=== PATIENT | male | born 1970 | race Two or more races ===

== ENCOUNTER 2017-04-27 16:06 | Emergency (ER) | payer OTHER ==
[~2017-04-27] VITALS: Ht 172.7 cm; Wt 129.3 kg
[~2017-04-27 16:06] MED LIST: ALBU.083IS IH; ALBU90OI INH; ASPI81CH PO; CEPH500 PO; CLON.2 PO; Clonidine HCl0.1 MG PO; DOCU100 PO; DOXY100 PO; FURO20 PO; HYDGUAL120 PO; Hydrochlorothia25 MG PO; LISI20 PO; Metoprolol Tar100 MG PO; POTCHL10ER PO; PRAV20 PO; PRED10 PO; PRED20 PO; SULTRIDS PO; TRIA80TC TOP; Vitamin D2000 UNIT; ZESTRIL40 MG PO
[2017-04-27 16:46] LABS: BASOPHILS ABSOLUTE AUTO 0.05 K/mm3 (0.00-0.23); BASOPHILS PERCENT AUTO 1 % (0-2); EOSINOPHILS ABSOLUTE AUTO 0.14 K/mm3 (0.00-0.68); EOSINOPHILS PERCENT AUTO 1 % (0-6); Hematocrit 49.7 % (37.0-53.0); Hemoglobin 16.3 g/dL (13.5-17.5); IMMATURE GRAN ABSOLUTE AUTO 0.09 K/mm3 (0.00-0.10); IMMATURE GRAN PERCENT AUTO 1 % (0-1); LYMPHOCYTES ABSOLUTE AUTO 2.28 K/mm3 (0.84-5.20); LYMPHOCYTES PERCENT AUTO 23 % (21-46); MONOCYTES ABSOLUTE AUTO 1.01 K/mm3 (0.16-1.47); MONOCYTES PERCENT AUTO 10 % (4-13); Mean Corpuscular HGB 29.2 pg (26.0-34.0); Mean Corpuscular HGB Conc 32.8 g/dL (31.5-36.5); Mean Corpuscular Volume 89 fL (80-100); Mean Platelet Volume 12.3 fL (9.1-12.4); NEUTROPHILS ABSOLUTE AUTO 6.25 K/mm3 (1.96-9.15); NEUTROPHILS PERCENT AUTO 64 % (41-73); Platelet Count 256 K/mm3 (150-400); RDW Coefficient Variation 13.5 % (11.7-14.2); RDW Standard Deviation 44.4 fL (35.1-46.3); Red Blood Cell Count 5.58 M/mm3 (4.30-5.90); White Blood Cell Count 9.82 K/mm3 (4.00-11.30)
[2017-04-27 17:04] LABS: Alanine Aminotransfer (ALT/SGP 33 U/L (12-78); Albumin/Globulin Ratio 0.6 (0.8-1.8); Alk Phos 93 U/L (50-136); Anion Gap 9 mmol/L (6-16); Aspartate Aminotrans (AST/SGOT 14 U/L (12-37); Bilirubin, Total 0.7 mg/dL (0.1-1.0); Blood Urea Nitrogen 10 mg/dL (8-24); Bun/Creatinine Ratio 10.6 (12.0-20.0); CO2, Blood 27 mmol/L (21-32); Calcium, Blood 8.8 mg/dL (8.5-10.1); Chloride, Blood 99 mmol/L (98-108); Creatinine, Blood 0.94 mg/dL (0.60-1.20); Glomerular Filtration Rate >60 (60-); Glucose, Blood 150 mg/dL (70-99); Potassium, Blood 3.6 mmol/L (3.5-5.5); Sodium, Blood 135 mmol/L (136-145)
[2017-04-27] MEDS ORDERED: CLON.2 PO (18:01)
[2017-04-27] MEDS ORDERED: FURO20 PO (18:01)
[2017-04-27] MEDS ORDERED: Keflex500 MG PO (18:20)
== END 2017-04-27 18:50 | disposition home or self-care (01) ==
LOC: ER 16:06
PROVIDERS: Psychiatry & Neurology Psychiatry
DX: L03.115 Cellulitis of right lower limb (principal); I10 Essential (primary) hypertension; Z79.899 Other long term (current) drug therapy
CPT/HCPCS: 36415; 80053; 85025; 99283

== ENCOUNTER 2018-07-17 20:40 | Emergency (ER) | payer OTHER ==
[~2018-07-17] VITALS: Ht 175.3 cm; Wt 129.3 kg
[~2018-07-17 20:40] MED LIST changes: +Keflex500 MG PO
[2018-07-17 21:24] LABS: Source, Urine Clean Catch
[2018-07-17 21:29] LABS: Appearance, Urine Clear (Clear); Bilirubin, Urine Neg (Neg); Blood, Urine 5+ (Neg); Color, Urine Yellow (P-Yellow); Glucose Qualitative, Urine Neg (Neg); Ketones, Urine Neg (Neg); Leukocyte Esterase, Urine Neg (Neg); Nitrite, Urine Neg (Neg); Protein, Urine Neg (Neg); Specific Gravity, Urine 1.015 (1.003-1.022); Urobilinogen, Urine 1+ (Normal)
[2018-07-17 21:44] LABS: Bacteria Mod /hpf; Red Blood Cells, Urine 50-100 /hpf (0-2); Squamous Epithelial Cells Few /hpf (Few); Yeast/Fungi Urine Few /hpf
== END 2018-07-17 23:45 | disposition left against medical advice (07) ==
LOC: ER 20:40
PROVIDERS: Emergency Medicine
DX: Z53.21 Procedure and treatment not carried out due to patient leaving prior to being seen by health care provider (principal)
CPT/HCPCS: 81001; 87086

== ENCOUNTER → 2018-08-04 | Outpatient (CLI) | payer OTHER | END | disposition home or self-care (01) | LOC: LAB SHORT 13:20 → LAB 13:20 | DX: Z87.448 Personal history of other diseases of urinary system (principal) | CPT/HCPCS: 88108 ==

== ENCOUNTER → 2019-01-07 | Outpatient (CLI) | payer OTHER | END | disposition home or self-care (01) | LOC: LAB SHORT 12:22 → LAB 12:22 → LAB FUT 11-18 13:05 → EDSTATUS 11-18 13:05 | DX: Z09 Encounter for follow-up examination after completed treatment for conditions other than malignant neoplasm (principal); Z87.448 Personal history of other diseases of urinary system | CPT/HCPCS: 88108 ==

== ENCOUNTER → 2019-06-08 | Outpatient (CLI) | payer OTHER ==
[2019-06-08 10:12] LABS: Source, Urine Clean Catch
[2019-06-08 12:52] LABS: Bilirubin, Urine Neg (Neg); Blood, Urine 5+ (Neg); Glucose Qualitative, Urine Neg (Neg); Ketones, Urine Neg (Neg); Leukocyte Esterase, Urine Neg (Neg); Nitrite, Urine Neg (Neg); Protein, Urine 3+ (Neg); Specific Gravity, Urine 1.015 (1.003-1.022); Urobilinogen, Urine NORM (Normal)
[2019-06-08 13:02] LABS: Appearance, Urine Hazy (Clear); Bacteria Rare /hpf; Color, Urine Yellow (P-Yellow); Red Blood Cells, Urine 50-100 /hpf (0-2); Squamous Epithelial Cells Few /hpf (Few); White Blood Cells, Urine 0-2 /hpf (0-5)
== END | disposition home or self-care (01) ==
LOC: LAB 09:00 → LAB SHORT 09:00
PROVIDERS: Internal Medicine
DX: N17.9 Acute kidney failure, unspecified (principal)
CPT/HCPCS: 81001; 82570; 84156

== ENCOUNTER 2019-09-19 11:32 | Inpatient (IN) | payer OTHER ==
[~2019-09-19] VITALS: Ht 157.5 cm; Wt 105.0 kg
[~2019-09-19 11:32] MED LIST changes: -Metoprolol Tar100 MG PO; -POTCHL10ER PO; -PRAV20 PO
[2019-09-19 13:53] LABS: BASOPHILS PERCENT AUTO 1 % (0-2); EOSINOPHILS ABSOLUTE AUTO 0.24 K/mm3 (0.00-0.68); EOSINOPHILS PERCENT AUTO 2 % (0-6); Hemoglobin 11.1 g/dL (13.5-17.5); IMMATURE GRAN ABSOLUTE AUTO 0.07 K/mm3 (0.00-0.10); IMMATURE GRAN PERCENT AUTO 1 % (0-1); LYMPHOCYTES ABSOLUTE AUTO 1.81 K/mm3 (0.84-5.20); LYMPHOCYTES PERCENT AUTO 12 % (21-46); MONOCYTES ABSOLUTE AUTO 0.97 K/mm3 (0.16-1.47); MONOCYTES PERCENT AUTO 7 % (4-13); Mean Corpuscular HGB 22.8 pg (26.0-34.0); Mean Corpuscular HGB Conc 28.5 g/dL (31.5-36.5); Mean Corpuscular Volume 80 fL (80-100); Mean Platelet Volume 11.4 fL (9.1-12.4); NEUTROPHILS ABSOLUTE AUTO 11.44 K/mm3 (1.96-9.15); NEUTROPHILS PERCENT AUTO 78 % (41-73); Platelet Count 506 K/mm3 (150-400); Red Blood Cell Count 4.86 M/mm3 (4.30-5.90); White Blood Cell Count 14.63 K/mm3 (4.00-11.30)
[2019-09-19 14:09] LABS: Anion Gap 6 mmol/L (6-16); Blood Urea Nitrogen 18 mg/dL (8-24); Bun/Creatinine Ratio 17.1 (12.0-20.0); CO2, Blood 26 mmol/L (21-32); Calcium, Blood 9.4 mg/dL (8.5-10.1); Chloride, Blood 103 mmol/L (98-108); Creatinine, Blood 1.05 mg/dL (0.60-1.20); Glomerular Filtration Rate >60 (60-); Glucose, Blood 97 mg/dL (70-99); Potassium, Blood 3.6 mmol/L (3.5-5.5); Sodium, Blood 135 mmol/L (136-145)
[2019-09-19 14:13] LABS: International Normalized Ratio 1.07; Prothrombin Time Results 11.4 Sec (9.7-11.5)
[2019-09-19] MEDS ORDERED: FURO20 PO (14:44)
[2019-09-19] MEDS ORDERED: POTCHL10ER PO (14:44)
[2019-09-19] MEDS ORDERED: Metoprolol Tar100 MG PO (14:51)
[2019-09-19] MEDS ORDERED: CLON.1 PO (14:52)
[2019-09-19] MEDS ORDERED: PRAV20 PO (14:52)
[2019-09-19] MEDS ORDERED: Aspir 8181 MG PO (14:52)
[2019-09-19] MEDS ORDERED: Vitamin D2000 UNIT PO (14:53)
[2019-09-19 15:38] LABS: Source, Urine Clean Catch
[2019-09-19 15:49] LABS: Bilirubin, Urine Neg (Neg); Blood, Urine 5+ (Neg); Glucose Qualitative, Urine Neg (Neg); Ketones, Urine 1+ (Neg); Leukocyte Esterase, Urine 1+ (Neg); Nitrite, Urine Neg (Neg); Protein, Urine 4+ (Neg); Urobilinogen, Urine NORM (Normal)
[2019-09-19 15:51] LABS: Appearance, Urine Bloody (Clear); Color, Urine Red (P-Yellow)
[2019-09-19 15:57] LABS: Bacteria Mod /hpf; Mucus Light (0-Heavy); Red Blood Cells, Urine TNTC /hpf (0-2); Squamous Epithelial Cells Few /hpf (Few)
--- NOTE | 2019-09-19 18:40 | NUR ---
SHIFT SUMMARY A/O X4, VSS, S/P R HIP FX. TOLERATING PO, PAIN MANAGED PER EMAR, R SIDE DEFICITS FROM CVA 7 YEARS AGO, REPOSITIONING R EXTREMETIES Q2. WILL REPORT TO ONCOMING NOC RN.
[2019-09-20 04:24] LABS: BASOPHILS ABSOLUTE AUTO 0.08 K/mm3 (0.00-0.23); BASOPHILS PERCENT AUTO 1 % (0-2); EOSINOPHILS ABSOLUTE AUTO 0.38 K/mm3 (0.00-0.68); EOSINOPHILS PERCENT AUTO 4 % (0-6); Hematocrit 33.7 % (37.0-53.0); Hemoglobin 9.8 g/dL (13.5-17.5); IMMATURE GRAN ABSOLUTE AUTO 0.03 K/mm3 (0.00-0.10); IMMATURE GRAN PERCENT AUTO 0 % (0-1); LYMPHOCYTES ABSOLUTE AUTO 1.48 K/mm3 (0.84-5.20); LYMPHOCYTES PERCENT AUTO 14 % (21-46); MONOCYTES ABSOLUTE AUTO 0.84 K/mm3 (0.16-1.47); MONOCYTES PERCENT AUTO 8 % (4-13); Mean Corpuscular HGB 23.1 pg (26.0-34.0); Mean Corpuscular HGB Conc 29.1 g/dL (31.5-36.5); Mean Corpuscular Volume 79 fL (80-100); Mean Platelet Volume 11.3 fL (9.1-12.4); NEUTROPHILS ABSOLUTE AUTO 8.11 K/mm3 (1.96-9.15); NEUTROPHILS PERCENT AUTO 74 % (41-73); Platelet Count 436 K/mm3 (150-400); RDW Coefficient Variation 15.9 % (11.7-14.2); RDW Standard Deviation 45.4 fL (35.1-46.3); Red Blood Cell Count 4.25 M/mm3 (4.30-5.90); White Blood Cell Count 10.92 K/mm3 (4.00-11.30)
--- NOTE | 2019-09-20 05:03 | NUR ---
Shift Summary Patient has been repositioned through out the night to position of comfort. He limited in his ablility to help with turns due to his prior stroke symptoms. He likes to have the urinal placed and kept there. He has mary blood in his urine, he states that this is normal for him. His rt leg is externally rotated and has been causeing him shooting pains, treated with norco at the start of the shift. pt has slept inbetween VS and rounding. NPO since midnight. Patient is happy that he will likely go to OR today. No acute changes.
--- NOTE | 2019-09-20 06:58 | NUR ---
PATIENT HAD BEEN VOIDING 20-50CC OF URINE EVERY FEW HOURS THROUGH OUT THE NIGHT. tHERE WAS AN ORDER FOR BLADDER FOR URINE RETENTION AND FOR STRAIGHT CATH IF >300. bLADDER SCAN SHOWED GREATER THAN 999. MILLAN CATH PLACED TO HELP DRAIN THE BLADDER SLOWLY OVER TIME. ORDER RECIEVED FOR MILLAN CATH. URINE IS CRANBERRY COLORED WITH BRANDON BLOOD ONLY AT THE MEATUS (PATIENT STATED THAT THIS HAS BEEN ONGOING).
[2019-09-20 07:39] LABS: Source, Urine Catheter
[2019-09-20 07:50] LABS: Appearance, Urine Cloudy (Clear); Bilirubin, Urine Neg (Neg); Blood, Urine 5+ (Neg); Color, Urine Amber (P-Yellow); Glucose Qualitative, Urine Neg (Neg); Ketones, Urine 1+ (Neg); Leukocyte Esterase, Urine 1+ (Neg); Nitrite, Urine Pos (Neg); Protein, Urine 3+ (Neg); Specific Gravity, Urine 1.015 (1.003-1.022); Urobilinogen, Urine 1+ (Normal)
[2019-09-20 08:05] LABS: Red Blood Cells, Urine TNTC /hpf (0-2)
[2019-09-20 08:07] LABS: Bacteria Many /hpf; Squamous Epithelial Cells Not Seen /hpf (Few)
--- NOTE | 2019-09-20 09:23 | NUR ---
DR BULLARD IN TO SEE PT.
--- NOTE | 2019-09-20 19:49 | NUR ---
SUMMARY NO ACUTE CHANGES T/O SHIFT. FLUSHED MILLAN CATH TWICE DURING SHIFT DUE TO NOT DRAINING AND INCREASED DISCOMFORT FOR PT. OUTPUT PINK TO RED. PT REPORTS THIS OCCURS AT HOME. MEDICATED PER ORDERS FOR PAIN T/O DAY. CALL LIGHT IN REACH.
--- NOTE | 2019-09-21 05:40 | NUR ---
SHIFT SUMMARY PT AA0X4 VSS. LEG EXTERNALLT ROTATED, PT ASSISTS WITH REPOSITIONING FOR COMFORT. PT HAS REPOSITIONED SELF IN BED FREQUENTLY. NPO SINCE MIDNIGHT PER ORDERS. PLAN IS TO GO TO OR DURING THE DAY. MILLAN DRAINING. SEDIMENT PRESENT RED IN COLOR. DENIED PAIN DURING SHIFT.
--- NOTE | 2019-09-21 12:03 | NUR ---
PT TO OR
--- NOTE | 2019-09-21 18:03 | NUR ---
SUMMARY PT ARRIVED TO UNIT FROM PACU. AQUACEL DRESSING TO R HIP CDI. POLAR PACK IN PLACE. PT DENIES PAIN. REQUESTING FOOD AND BEVERAGES. ADVISED PT TO TAKE SLOWLY. PT EATING DINNER TRAY AT THIS TIME. VSS. CALLED DR BULLARD REGARDING DARK RED URINE IN MILLAN. ORDERS OBTAINED. CALL LIGHT IN REACH.
[2019-09-21 20:28] LABS: BASOPHILS ABSOLUTE AUTO 0.04 K/mm3 (0.00-0.23); BASOPHILS PERCENT AUTO 0 % (0-2); EOSINOPHILS ABSOLUTE AUTO 0.01 K/mm3 (0.00-0.68); EOSINOPHILS PERCENT AUTO 0 % (0-6); Hematocrit 34.7 % (37.0-53.0); Hemoglobin 9.8 g/dL (13.5-17.5); IMMATURE GRAN ABSOLUTE AUTO 0.11 K/mm3 (0.00-0.10); IMMATURE GRAN PERCENT AUTO 1 % (0-1); LYMPHOCYTES ABSOLUTE AUTO 0.65 K/mm3 (0.84-5.20); LYMPHOCYTES PERCENT AUTO 4 % (21-46); MONOCYTES ABSOLUTE AUTO 0.49 K/mm3 (0.16-1.47); MONOCYTES PERCENT AUTO 3 % (4-13); Mean Corpuscular HGB 23.1 pg (26.0-34.0); Mean Corpuscular HGB Conc 28.2 g/dL (31.5-36.5); Mean Corpuscular Volume 82 fL (80-100); Mean Platelet Volume 10.7 fL (9.1-12.4); NEUTROPHILS PERCENT AUTO 92 % (41-73); Platelet Count 405 K/mm3 (150-400); RDW Coefficient Variation 15.9 % (11.7-14.2); RDW Standard Deviation 47.8 fL (35.1-46.3); Red Blood Cell Count 4.25 M/mm3 (4.30-5.90)
--- NOTE | 2019-09-22 04:44 | NUR ---
SHIFT SUMMARY POD 1 R TOTAL HIP AA0X4, VSS. PT HAS DENIED PAIN DURING SHIFT. REPORTS PAIN MANAGED EASIER WITH REPOSITIONING. REPOSITIONED FREQUENTLY. MILLAN PATENT AND DRAINING. URINE DOES NOT APPEAR RED THIS AM. TOLERATING PO WELL, FLUIDS INFUSING T/O SHIFT. PT REPORTS GETTING A GOOD NIGHTS SLEEP. PLAN TO WORK WITH PT/OT IN THE MORNING.
[2019-09-22 04:50] LABS: BASOPHILS ABSOLUTE AUTO 0.05 K/mm3 (0.00-0.23); BASOPHILS PERCENT AUTO 0 % (0-2); EOSINOPHILS PERCENT AUTO 0 % (0-6); Hematocrit 31.1 % (37.0-53.0); Hemoglobin 8.8 g/dL (13.5-17.5); IMMATURE GRAN PERCENT AUTO 1 % (0-1); LYMPHOCYTES ABSOLUTE AUTO 0.71 K/mm3 (0.84-5.20); LYMPHOCYTES PERCENT AUTO 4 % (21-46); MONOCYTES ABSOLUTE AUTO 1.44 K/mm3 (0.16-1.47); MONOCYTES PERCENT AUTO 8 % (4-13); Mean Corpuscular HGB 22.9 pg (26.0-34.0); Mean Corpuscular HGB Conc 28.3 g/dL (31.5-36.5); Mean Corpuscular Volume 81 fL (80-100); NEUTROPHILS ABSOLUTE AUTO 15.49 K/mm3 (1.96-9.15); NEUTROPHILS PERCENT AUTO 87 % (41-73); Platelet Count 441 K/mm3 (150-400); RDW Coefficient Variation 15.9 % (11.7-14.2); Red Blood Cell Count 3.84 M/mm3 (4.30-5.90); White Blood Cell Count 17.79 K/mm3 (4.00-11.30)
--- NOTE | 2019-09-22 12:32 | NUR ---
PT MILLAN RECENTLY FLUSHED IT APPEARED TO NOT BE DRAINING WELL AT THIS TIME. MILLAN WAS FLUSHED WITH 40 CC STERILE WATER, MILLAN IMMED STARTED DRAINING. MILLAN RECENTLY EMPTIED HAVING 400 ML OF DARK DENIS/RED URINE. DR BULLARD NOTIFIED, REPORTS TO LEAVE MILLAN IN AT THIS TIME. DISCUSSED WITH SCHOOL CHILD CARE ATTENDANT.
[2019-09-22 16:10] LABS: Hematocrit 27.9 % (37.0-53.0); Hemoglobin 8.1 g/dL (13.5-17.5); Mean Corpuscular HGB 23.4 pg (26.0-34.0); Mean Corpuscular Volume 81 fL (80-100); Mean Platelet Volume 11.1 fL (9.1-12.4); Platelet Count 382 K/mm3 (150-400); RDW Standard Deviation 46.2 fL (35.1-46.3); Red Blood Cell Count 3.46 M/mm3 (4.30-5.90); White Blood Cell Count 15.59 K/mm3 (4.00-11.30)
--- NOTE | 2019-09-22 16:36 | NUR ---
SHIFT SUMMARY POD #1 FOR RIGHT HIP SURGERY. AQUALCEL DRESSING IN PLACE AND C/D/I. PT DENIED PAIN THROUGH OUT THE SHIFT. PAIN IS MANAGED THROUGH FREQUENT REPOSITIIONING. MILLAN IN PLACE AND DRAINING DENIS/RED URINE. URINE IS CLEAR WITH NO CLOTS. PATIENT UP IN CHAIR DURING SHIFT. PT IS A 3 PERSON ASSIST W/LILY WALKER DUE TO RIGHT SIDED DEFICIT. NO IV ACCESS DUE TO INFILTRATION AT 1630.
--- NOTE | 2019-09-22 17:25 | NUR ---
09/22/19 1725 Papst,Medardo D VERIFICATION AMEND IMPLANTS
--- NOTE | 2019-09-22 17:38 | NUR ---
PT DRINKING WELL, IV LEAKING EARLIER AND WAS DC'D. DR NOTIFIED. DR REPORTS MAY LEAVE IV OUT. SEE ORDERS.
--- NOTE | 2019-09-22 18:04 | NUR ---
HEEL DRESSINGS CHANGED AT 0600.
--- NOTE | 2019-09-23 04:02 | NUR ---
SHIFT SUMMARY PT IS A/O X4. PT HAS BEEN REPOSITIONED MULTIPLE TIMES DURING THE SHIFT. DRESSING TO R HIP CDI. PAIN MANAGED WITH ICE PACK AND PO PAIN MED PER ORDERS. CATHETER IN PLACE, PATENT, OFF FLOOR. PT HAS R SIDE WEAKNESS FROM PREVIOUS CVA AND REQUIRES MAX ASSIST. USES LILY WALKER AT BASELINE. NO ACUTE CHANGES OVERNIGHT; ASSISTED WITH ADL'S. VSS.
[2019-09-23 04:27] LABS: BASOPHILS ABSOLUTE AUTO 0.08 K/mm3 (0.00-0.23); BASOPHILS PERCENT AUTO 1 % (0-2); EOSINOPHILS ABSOLUTE AUTO 0.27 K/mm3 (0.00-0.68); EOSINOPHILS PERCENT AUTO 2 % (0-6); Hematocrit 25.8 % (37.0-53.0); Hemoglobin 7.6 g/dL (13.5-17.5); IMMATURE GRAN ABSOLUTE AUTO 0.05 K/mm3 (0.00-0.10); IMMATURE GRAN PERCENT AUTO 1 % (0-1); LYMPHOCYTES ABSOLUTE AUTO 2.02 K/mm3 (0.84-5.20); LYMPHOCYTES PERCENT AUTO 18 % (21-46); MONOCYTES ABSOLUTE AUTO 1.09 K/mm3 (0.16-1.47); MONOCYTES PERCENT AUTO 10 % (4-13); Mean Corpuscular HGB 23.6 pg (26.0-34.0); Mean Corpuscular HGB Conc 29.5 g/dL (31.5-36.5); Mean Corpuscular Volume 80 fL (80-100); Mean Platelet Volume 10.9 fL (9.1-12.4); NEUTROPHILS ABSOLUTE AUTO 7.52 K/mm3 (1.96-9.15); NEUTROPHILS PERCENT AUTO 68 % (41-73); Platelet Count 368 K/mm3 (150-400); RDW Coefficient Variation 16.2 % (11.7-14.2); RDW Standard Deviation 46.6 fL (35.1-46.3); Red Blood Cell Count 3.22 M/mm3 (4.30-5.90); White Blood Cell Count 11.03 K/mm3 (4.00-11.30)
[2019-09-23 09:59] LABS: Percent Saturation 14.2 % (20.0-50.0)
--- NOTE | 2019-09-23 10:58 | NUR ---
PT WORKED WITH PHYSICAL THERAPY AT 1045.
--- NOTE | 2019-09-23 11:45 | NUR ---
DR BULLARD HERE TO SEE PT.
[2019-09-23 13:40] LABS: Hematocrit 29.6 % (37.0-53.0); Hemoglobin 8.6 g/dL (13.5-17.5); Mean Corpuscular HGB 23.7 pg (26.0-34.0); Mean Corpuscular HGB Conc 29.1 g/dL (31.5-36.5); Mean Corpuscular Volume 82 fL (80-100); Mean Platelet Volume 11.5 fL (9.1-12.4); Platelet Count 408 K/mm3 (150-400); RDW Coefficient Variation 16.6 % (11.7-14.2); RDW Standard Deviation 48.4 fL (35.1-46.3); Red Blood Cell Count 3.63 M/mm3 (4.30-5.90); White Blood Cell Count 12.35 K/mm3 (4.00-11.30)
--- NOTE | 2019-09-23 17:43 | NUR ---
SHIFT SUMMARY PT IS POD #2 FOR CLOSED R FEMUR FX. PT IS A/O X4. PAIN IS MANAGED WITH FREQUENT REPOSITIONING. PT REPOSITIONED OFTEN THROUGOUT THE SHIFT. PT TRANSFERS WITH 2 PEOPLE USING A SLIDING BOARD. YANA CEE. PT USES THE URINAL INDEPENDENTLY.
--- NOTE | 2019-09-23 18:40 | NUR ---
PT BEEN ASSISTED WITH ADL'S PRN. PT BEEN UP TO CHAIR MOST OF DAY. PT BEEN ASSISTED BACK TO BED WITH MULT ASSIST. PT REQ TO HAVE ATTENDS IN PLACE, WHICH THEY ARE NOW CHANGED AND NEW MEPILEX BEING PLACED. PT ALARM IN PLACE ALTHOUGH HE USES HIS CALL LIGHT.
--- NOTE | 2019-09-23 19:05 | NUR ---
SACRAL MEPILEX DRESSING CHANGED AT 1845.
--- NOTE | 2019-09-24 04:11 | NUR ---
SHIFT SUMMARY PT IS A/O X4. PAIN MANAGED WITH PO PAIN MED PER ORDER; SEE EMAR. PT HAS BEEN REPOSITIONED MULT TIMES THROUGHOUT THE SHIFT. PT HAS R SIDE WEAKNESS FROM PREVIOUS CVA - DUE TO THIS PT NEEDS 2X ASSIST FOR REPOSITIONING. ATTENS IN PLACE AND CHANGED PRN. PT ATTEMPTS TO USE URINAL BUT OCCASIONALLY HAS BEEN INCONTINENT. LINENS CHANGED DURING THE NIGHT. NO ACUTE CHANGES OVERNIGHT.
--- NOTE | 2019-09-24 12:30 | NUR ---
PT RECENTLY DISCHARGED SNF, REPORT GIVEN. MULT BELONGINGS INCLUDING PHONE AND SEARCH DIRECTOR SENT WITH PT, BELONGINGS SENT WITH PT. PT GOING BY TRANSPORT. REPORT WAS GIVEN TO SHERINE. PAPERWORK INCLUDING SCRIPT SENT.
== END 2019-09-24 12:10 | disposition home or self-care (01) | DRG 470 ==
LOC: ER 11:32 → SURS 15:06
PROVIDERS: Emergency Medicine; Family Medicine; Hospitalist; Nurse Practitioner Acute Care; Orthopaedic Surgery; ADMIT Internal Medicine
PROC: 0SR903Z Replacement of Right Hip Joint with Ceramic Synthetic Substitute, Open Approach (ICD-10-PCS; principal; 2019-09-21 12:30)
DX: S72.001A Fracture of unspecified part of neck of right femur, initial encounter for closed fracture (principal); C64.9 Malignant neoplasm of unspecified kidney, except renal pelvis; I69.353 Hemiplegia and hemiparesis following cerebral infarction affecting right non-dominant side; I10 Essential (primary) hypertension; W18.30XA Fall on same level, unspecified, initial encounter; Y92.002 Bathroom of unspecified non-institutional (private) residence as the place of occurrence of the external cause; Z87.891 Personal history of nicotine dependence; R82.71 Bacteriuria; D64.9 Anemia, unspecified; R31.9 Hematuria, unspecified
CPT/HCPCS: 36415; 71045; 72100; 72170; 73502; 80048; 81001; 82728; 83540; 83550; 85025; 85027; 85610; 85730; 86850; 86900; 86901; 87086; 88305; 88311; 93005; 93010; 96360; 96361; 97110; 97163; 97166; 97530; 99285-25; A9270-GY; C1776; J0171; J0690; J0696; J0735; J1100; J1885; J2250; J2370; J2405; J2704; J2795; J3010; J7030; J7120; U0002

== ENCOUNTER 2020-05-01 17:52 | Emergency (ER) | payer OTHER ==
[~2020-05-01] VITALS: Ht 175.3 cm; Wt 97.5 kg
== END 2020-05-01 20:19 | disposition home or self-care (01) ==
LOC: ER 17:52
DX: Z00.00 Encounter for general adult medical examination without abnormal findings (principal); I69.351 Hemiplegia and hemiparesis following cerebral infarction affecting right dominant side; Z79.82 Long term (current) use of aspirin; Z79.899 Other long term (current) drug therapy
CPT/HCPCS: 99284

== ENCOUNTER 2020-05-04 11:42 | Inpatient (IN) | payer OTHER ==
[~2020-05-04] VITALS: Ht 177.8 cm; Wt 92.8 kg
[2020-05-04 12:04] LABS: BASOPHILS ABSOLUTE AUTO 0.07 K/mm3 (0.00-0.23); BASOPHILS PERCENT AUTO 1 % (0-2); EOSINOPHILS ABSOLUTE AUTO 0.02 K/mm3 (0.00-0.68); EOSINOPHILS PERCENT AUTO 0 % (0-6); Hematocrit 45.1 % (37.0-53.0); Hemoglobin 14.6 g/dL (13.5-17.5); IMMATURE GRAN ABSOLUTE AUTO 0.07 K/mm3 (0.00-0.10); IMMATURE GRAN PERCENT AUTO 1 % (0-1); LYMPHOCYTES ABSOLUTE AUTO 0.86 K/mm3 (0.84-5.20); LYMPHOCYTES PERCENT AUTO 8 % (21-46); MONOCYTES ABSOLUTE AUTO 0.88 K/mm3 (0.16-1.47); MONOCYTES PERCENT AUTO 8 % (4-13); Mean Corpuscular HGB 28.3 pg (26.0-34.0); Mean Corpuscular HGB Conc 32.4 g/dL (31.5-36.5); Mean Corpuscular Volume 88 fL (80-100); NEUTROPHILS ABSOLUTE AUTO 9.49 K/mm3 (1.96-9.15); NEUTROPHILS PERCENT AUTO 83 % (41-73); Platelet Count 125 K/mm3 (150-400); RDW Coefficient Variation 27.3 % (11.7-14.2); RDW Standard Deviation 84.9 fL (35.1-46.3); Red Blood Cell Count 5.15 M/mm3 (4.30-5.90); White Blood Cell Count 11.39 K/mm3 (4.00-11.30)
[2020-05-04 12:08] LABS: Mean Platelet Volume 10.1 fL (9.1-12.4)
[2020-05-04 12:22] LABS: Albumin/Globulin Ratio 0.4 (0.8-1.8); Bilirubin, Total 1.9 mg/dL (0.1-1.0); Bun/Creatinine Ratio 11.4 (12.0-20.0); Calcium, Blood 8.9 mg/dL (8.5-10.1); Creatinine, Blood 1.67 mg/dL (0.60-1.20); Globulin, Blood 5.3 g/dL (2.2-4.0); Potassium, Blood 4.2 mmol/L (3.5-5.5); Total Protein, Blood 7.3 g/dL (6.4-8.2)
[2020-05-04] MEDS ORDERED: POTCHL10ER PO (12:44)
[2020-05-04] MEDS ORDERED: FURO20 PO (12:44)
[2020-05-04] MEDS ORDERED: PRAV20 PO (12:44)
--- NOTE | 2020-05-04 16:28 | NUR ---
Echocardiogram using 9.0ml of agitated saline contrast performed by Tanja Momin under my supervision.
--- NOTE | 2020-05-04 19:20 | NUR ---
ADMISSION PT NEW ADMISSION TO 360 FROM ED. PT SLEEPY AND DOESN'T ANSWER QUESTIONS. PT WILL STATE HIS BIRTHDAY WITH SLURRED SPEECH. PT STARES AT THE CEILING WHEN TALKING TO PT. ATTENDS CHANGED, PT INCONTINENT. PT'S BP 200/125. THIS RN CALLED DR. GATES AND NEW ORDERS WERE GIVEN FOR HYDRALAZINE. NO DISTRESS AT THIS TIME. CALL LIGHT IN REACH. REPORT GIVEN TO ZAYRA RN.
[2020-05-04] MEDS ORDERED: Percocet 5-3251 EACH PO (19:49)
[2020-05-04 23:02] LABS: Source, Urine Clean Catch
[2020-05-04 23:05] LABS: Bilirubin, Urine Neg (Neg); Blood, Urine 5+ (Neg); Glucose Qualitative, Urine 1+ (Neg); Ketones, Urine Neg (Neg); Leukocyte Esterase, Urine Neg (Neg); Nitrite, Urine Neg (Neg); Protein, Urine 4+ (Neg); Urobilinogen, Urine NORM (Normal)
[2020-05-04 23:13] LABS: Amorphous Mod (0-Heavy); Appearance, Urine Hazy (Clear); Bacteria Few /hpf; Color, Urine Yellow (P-Yellow); Granular Casts 0-2 /lpf (0); Red Blood Cells, Urine 25-50 /hpf (0-2); Squamous Epithelial Cells Few /hpf (Few); White Blood Cells, Urine 0-2 /hpf (0-5)
[2020-05-04 23:16] LABS: U Amphetamine Screen DETECTED; U Barbituate Screen Not Detected; U Benzodiazapine Screen Not Detected; U Buprenorphine Screen Not Detected; U Cannabinoids Screen Not Detected; U Cocaine Screen Not Detected; U Methadone Screen Not Detected; U Methamphetamine Screen DETECTED; U Opiates Screen Not Detected; U Oxycodone Screen Not Detected; U Phencyclidine Screen Not Detected; U Propoxyphene Screen Not Detected
[2020-05-05 03:14] LABS: Hematocrit 44.9 % (37.0-53.0); Hemoglobin 14.2 g/dL (13.5-17.5); Mean Corpuscular HGB 27.6 pg (26.0-34.0); Mean Corpuscular HGB Conc 31.6 g/dL (31.5-36.5); Mean Corpuscular Volume 87 fL (80-100); NRBC ABSOLUTE 0.02 K/mm3 (0.00-0.02); NRBC Auto 0.2 /100 WBC (0.0-0.2); Platelet Count 124 K/mm3 (150-400); RDW Coefficient Variation 27.9 % (11.7-14.2); RDW Standard Deviation 87.1 fL (35.1-46.3); Red Blood Cell Count 5.15 M/mm3 (4.30-5.90)
[2020-05-05 03:32] LABS: Anion Gap 7 mmol/L (6-16); Blood Urea Nitrogen 22 mg/dL (8-24); CO2, Blood 28 mmol/L (21-32); Calcium, Blood 8.5 mg/dL (8.5-10.1); Chloride, Blood 110 mmol/L (98-108); Creatinine, Blood 1.83 mg/dL (0.60-1.20); Glomerular Filtration Rate 42 (60-); Glucose, Blood 108 mg/dL (70-99); Magnesium, Blood 2.3 mg/dL (1.6-2.4); Potassium, Blood 4.6 mmol/L (3.5-5.5); Sodium, Blood 145 mmol/L (136-145); Troponin I <0.015 ng/mL (0.000-0.040)
--- NOTE | 2020-05-05 04:17 | NUR ---
SHIFT SUMMARY ASSUMED CARE OF PT AT 1900. PT IS A/OX1, PT WAS VERY SLEEPY AND UNRESPONSIVE AT THE BEGINNING OF THE SHIFT, AT AROUND 0000 PT WAS ABLE TO SAY ONE WORDED SENTENCES, NOW AT 0400 PT IS ABLE TO SAY SENTENCES AND ANSWER QUESTIONS BUT IS STILL NOT ORIENTED. PT ALSO PULLED OUT IV AND STATED THAT HE DIDNT KNOW WHY. PT WAS INCONTINENT AT BEGINNING OF THE SHIFT, THEN HE WAS STRAIGHT CATHED FOR UA, 450 EMTIED FROM BLADDER. UA TESTED POSITIVE FOR METH, WHEN ASKING PT IF HE DID DRUGS HE STATED NO, HE HAS NEVER DONE DRUGS IN HIS LIFE. PT HAS R SIDED WEAKNESS, HIS LIMBS ARE SLIGHTLY CONTRACTED. HEART SOUNDS REGULAR, LUNG SOUNDS DIMINISHED.PT HAS OPEN CRACK IN HIS SKIN BETWEEN HIS BUTTOCK, MEPELEX APPLIED. PT R BIG TOE IS VERY BRUISED. PT ALSO HAS CRACKED KNUCKLES ON HIS L HAND. PT BP HAS BEEN ELEVATED T/O THE NIGHT. ADMITTED DOCTORS NOTE STATES TO ONLY GIVE BP MEDICATIONS IF PT BP IS ABOVE 220 SYSTOLIC. THIS WAS CONFIRMED WITH NOC HOSPITALIST. CALL LIGHT IN REACH, BED IN LOWEST POSTION.
--- NOTE | 2020-05-05 08:54 | NUR ---
BP CALLED DR AND VERIFIED TO HOLD BP MEDS IF ITS <220 SBP.
--- NOTE | 2020-05-05 10:17 | NUR ---
RUNS OF VTACH CALLED DR AND LEFT MESSAGE ABOUT THE 14 BEATS RUNS OF VTACH OF THIS PT. PT WAS IN THE COMMODE AND WORKING WITH PT AT THAT TIME OF EVT
--- NOTE | 2020-05-05 18:11 | NUR ---
SHIFT SUMMARY PT WILL SOMETIMES ANSWER TO A YES OR NO QUESTIONS; BUT MOST OF THE TIME NONVERBAL. PT MOM IS AT BEDSIDE- SHE CAME FROM [place]. PT AUNVINCENT BROUGHT THE CANCER MEDS FOR THIS PT; VERIFIED BY PHARMACY AND GIVEN THIS LATE AFTERNOON- PT MOM STATED THIS PT GETS THE CANCER MEDS AT 1600 BEFORE DINNER ON AN EMPTY STOMACH- MEDICATION WAS GIVEN THIS AFTERNOON. METOPROLOL WAS ALSO GIVEN BY DR MATTHEWS- BP HAS BEEN ELEVATED. PT IS ON BEDREST AT THIS TIME- Q2 TURN. MEPELEX CHANGED ON THE PT BUTTOCKS AREA- OLD ULCER. PT IS ALSO FLACCID BOTH UPPER AND LOWER- BUT ABLE TO MOVE HANDS ON HIS LEFT. SPEECH THERAPY WAS ORDERED TODAY. BED ALARM IS ON AND CALL LIGHT WITHIN REACH.
--- NOTE | 2020-05-05 18:59 | NUR ---
CALLED ABOUT THE RUNS OF A-FLUTTER OF 110-120 OF THIS PT; DR AWARE THAT METOPROLOL WAS GIVEN THIS AFTERNOON. PT DENIES CP AND ASYMPTOMATIC . NO ORDER AT THIS TIME WILL LET THE NIGHT NURSE KNOW
--- NOTE | 2020-05-05 22:34 | NUR ---
2217 PT VERY LETHARGIC WITH BILATERAL PUPILS PINPOINT AND NON RESPONSIVE TO LIGHT; THIS NURSE SUCTIONED LARGE CHUNKS CARROT PARTICLES FROM MOUTH AND THICK YELLOW PHELGM; RAPID RESPONSE CALLED. PT NON VERBAL.
[2020-05-06 00:31] LABS: Base Excess Venous 5.4 mmol/L; Bicarbonate Venous 28.8 mmol/L (24.0-30.0); PCO2 Venous 38.9 mmHg (38-42); PO2 Venous 58.5 mmHg (38-42); pH Blood Venous 7.48 (7.34-7.37)
--- NOTE | 2020-05-06 01:00 | NUR ---
TIP LENGTH CHECKER from medical floor RM 360 to ICU 15 Pt arrived from medical floor via bed accompanied by Mik, ALYCE and charge nurse, Polina. Pt appears lethargic/drowsy, not following commands, eyes are pinpoint, and has periods of apnea (14-16 seconds). Awaken with verbal stimuli but unable to follow commands. SBP elevated (see vital sheet), in sinus tach, and on 4 L via NC, spo2 100% upon arrival. Oxygen decreased to 2 L via NC, spo2 > 95%. Pts right side is flaccid and pt moves left arm occasionally. Right wrist IV returning blood and flushing well. Spoke with Gale regards pt, see orders.
[2020-05-06 04:02] LABS: BASOPHILS ABSOLUTE AUTO 0.06 K/mm3 (0.00-0.23); BASOPHILS PERCENT AUTO 1 % (0-2); EOSINOPHILS ABSOLUTE AUTO 0.07 K/mm3 (0.00-0.68); EOSINOPHILS PERCENT AUTO 1 % (0-6); Hematocrit 38.3 % (37.0-53.0); Hemoglobin 11.8 g/dL (13.5-17.5); IMMATURE GRAN ABSOLUTE AUTO 0.11 K/mm3 (0.00-0.10); IMMATURE GRAN PERCENT AUTO 1 % (0-1); LYMPHOCYTES ABSOLUTE AUTO 1.77 K/mm3 (0.84-5.20); LYMPHOCYTES PERCENT AUTO 19 % (21-46); MONOCYTES ABSOLUTE AUTO 0.95 K/mm3 (0.16-1.47); MONOCYTES PERCENT AUTO 10 % (4-13); Mean Corpuscular HGB Conc 30.8 g/dL (31.5-36.5); Mean Corpuscular Volume 91 fL (80-100); NEUTROPHILS ABSOLUTE AUTO 6.25 K/mm3 (1.96-9.15); NEUTROPHILS PERCENT AUTO 68 % (41-73); NRBC ABSOLUTE 0.04 K/mm3 (0.00-0.02); NRBC Auto 0.4 /100 WBC (0.0-0.2); Platelet Count 107 K/mm3 (150-400); RDW Coefficient Variation 27.9 % (11.7-14.2); Red Blood Cell Count 4.22 M/mm3 (4.30-5.90); White Blood Cell Count 9.21 K/mm3 (4.00-11.30)
[2020-05-06 04:05] LABS: Mean Platelet Volume 10.6 fL (9.1-12.4)
[2020-05-06 04:15] LABS: Bun/Creatinine Ratio 12.8 (12.0-20.0); Calcium, Blood 8.1 mg/dL (8.5-10.1); Creatinine, Blood 2.18 mg/dL (0.60-1.20); Potassium, Blood 4.2 mmol/L (3.5-5.5)
--- NOTE | 2020-05-06 07:45 | NUR ---
SHIFT SUMMARY Pt has improved mental status. Able to state being in "motel" when asked if he knows where he is, reoriented. Asking for water. Asked pt about his tattoo on left wrist which states Janice, pt states "my mother." Pt says "yes" "no" and "how are you." Eyes open and tracking. During 0400 assessment pt was having periods of apnea, snoring, and awaken to verbal stimuli. Since than pt has improved apneic periods and able to answer simple questions/tracking with eyes when in room. Pt continues to be hypertensive but no SBP > 220, therefore PRN BP medication held per orders. NSR. Pts oxygen removed and pt tolerating RA well, spo2 > 95%. Will report to oncoming shift. Dr. Sol called to ask about placing villanueva in pt due to bladder scan results of 451. No new orders recieved. Asked to wait to straight cath pt until after dayshift provider has assessed pt. To determine if villanueva should be placed or to continue to straight cathing pt.
--- NOTE | 2020-05-06 08:00 | NUR ---
Received report from Nigel RN. Patient awaken easily when entering room and is able to communicate most of his needs. He called us in and we cleaned up incontinent stools ligt cardona and changed attends and linen. Replaced mepelex type dressing to coccyx. He remains hypertensive and per order no PRN medication until 220>.22ga IV in RFA and 20ga IV in LFA flushed and caps changed and are SL'd. Antonieta called and talked for about ten minutes. He is very stiff to LE's bilaterally and is unable to straighten very well, His right arm very stiff and unable to use. He can move LE and hold minimal things, did some ROM and am care.
--- NOTE | 2020-05-06 09:30 | NUR ---
PT came and worked with him and assisted him to side of bed and tired eaily. He remains on RA and sats >95%. he was incontinent of stool again and leakes from penis and bladder scan 550ml. Dr Flood by to see him and changed status and wants villanueva inserted for urine retention.
[2020-05-06 10:55] LABS: Source, Urine Catheter
[2020-05-06 11:04] LABS: Blood, Urine 5+ (Neg); Glucose Qualitative, Urine Neg (Neg); Ketones, Urine Neg (Neg); Leukocyte Esterase, Urine 1+ (Neg); Nitrite, Urine Neg (Neg); Protein, Urine 4+ (Neg); Urobilinogen, Urine 1+ (Normal)
[2020-05-06 11:05] LABS: Appearance, Urine Hazy (Clear); Bilirubin, Urine 1+ (Neg); Color, Urine Brown (P-Yellow)
[2020-05-06 11:10] LABS: WBC Cast Rare /lpf (0)
[2020-05-06 11:12] LABS: Bacteria Mod /hpf; Red Blood Cells, Urine 25-50 /hpf (0-2); Squamous Epithelial Cells Rare /hpf (Few)
[2020-05-06 11:13] LABS: Transitional Epithelial Cells Few /hpf (0-Rare)
--- NOTE | 2020-05-06 11:30 | NUR ---
Speech therapist came by and he tolerated whole meds in apple sauce and she wrote new diet orders see sheet on door. Placed 16Fr villanueva and draining ramon colored urine, patient tolerated well and sent UA.. He has had several calls from family and has talked with girlfriend several times, mother has called and received updates three time before 1100. No other significant changes with patient. Kathrine and Dr santacruz came back by to see hi, no new orders.
--- NOTE | 2020-05-06 13:30 | NUR ---
Patient [facility]. He has been resting watching TV off and on. He is clearer after resting and slow to respond. He tires easily and is mildly confused. He has been tolerating thicked liquids. He tolerated about 50% of dinner and is a feeder and needs encouragemnet to chin down and swallow.family called and is coming in.He remains on Ra and sats >90%.
--- NOTE | 2020-05-06 16:50 | NUR ---
Patient has been tolerating meds in applesauce well.Family is here and maid exception for one at atime since they from out of area. He has been very slow to respond and tire last hour while family present, he keeps staing he wants to go home and is redirected easily. He had another small BM soft and cardona and changed attends and linen. No significant changes with patient. He will be moving to room 302.
--- NOTE | 2020-05-06 17:31 | NUR ---
Gave report to Kath MEAD and transferred patient via ICU gurney and four person slid transfer. Both of us looked at right foot and backside. He was transferred on RA and all home meds went with him. Maryam villanueva prior to carmine.
--- NOTE | 2020-05-06 17:59 | NUR ---
RECEICVED PT TRANSFER FROM ICU. PT IS ALERT AND ORINETED TO PERSON AND PLACE. . PT IS RESTING IN BED AFTER DINNER. PT LINE IS SL AND WNL. STAFF WILL CONT. TO MONITOR.
--- NOTE | 2020-05-07 05:45 | NUR ---
SHIFT SUMMARY PATIENT CONFUSED AND SLIGHTLY AGITATED AT THE BEGINNING OF SHIFT. HE THOUGHT HE WAS AT HIS AUNT'S HOUSE AND WAS YELLING DOWN THE LUJAN FOR SOMEONE NAMED SAMUEL. PT HAS DIFFICULTY FOLLOWING DIRECTIONS AND IS HAVING A HARD TIME USING THE MECHANICS NEEDED TO SWALLOW. HE HAS TO BE REMINDED MULTIPLE TIMES TO SWALLOW, EVEN WITH A PUREE CONSISTENCY. IVS PATENT AND FLUSHED. BED IN LOWEST POSITION WITH WHEELS LOCKED AND ALARM ON. CALL LIGHT WITHIN REACH. REPORT GIVEN TO ONCOMING RN.
--- NOTE | 2020-05-07 07:29 | NUR ---
pATIENT RECEIVED THIS MORNING YELLING "HELP" AND CAN BE HEARD THROUGH UNIT. WHEN APPROACHED, PT STATED THAT HE WANTED HIS WALKER TO GET UP AND WALK. THE PT WAS REMINDED THAT HE WAS NOT ABLE TO STAITEN HIS LEGS DURRING HIS PT EVAL AND THAT ANOTHER EVAL WILL NEED TO TAKE PLACE TO GET HIS UP AND AMBULATING AGAIN. PT LEGS ARE STILL CONTRACTEDAND FEET INWARD WITH NO ABILITY TO RELAX OR STARITEN. pT STARTED YELLING AGAIN SAYING THAT I NEEDED TO CARRY HIM TO A CHAIR. I ASKED HIM IF I COULD DEB HIM IN THE MEANTIME TO GET HIM OFF OF HIS R SIDE HE HAS BEEN FAVORING IT AND THE PT STARTED YELLING PROFANITIES AND REFUSING CARE. hE IS ACTIVELY YELLING FOR HIS GIRLFIEND AND BELIEVED HE IS AT HOME WITH HER AND ANGERS WHEN YOU INFORM HIM HE IS AT [facility] FOR MEDICAL TREATMENT. PT REFUSED LABS THIS MORNING.
--- NOTE | 2020-05-07 18:13 | NUR ---
PT RESTING IN BED AFTER REFUSING DINNER. PT WAS MEDICATION COMPLIANT TODAY, HAD DAUGHTER AT BEDSIDE, WAS ALERT AND ORIENTED X3 (NOT TO SITUATION) BUT EASILY REORIENTED. PT REMAINS BEDBOUND WITH SWALLOW PRECAUTIONS. IV'S FLUSHED, SL AND WNL. STAFF WILL CONT. TO MONITOR.
[2020-05-08 04:41] LABS: BASOPHILS ABSOLUTE AUTO 0.05 K/mm3 (0.00-0.23); BASOPHILS PERCENT AUTO 1 % (0-2); EOSINOPHILS ABSOLUTE AUTO 0.33 K/mm3 (0.00-0.68); EOSINOPHILS PERCENT AUTO 5 % (0-6); Hematocrit 37.4 % (37.0-53.0); Hemoglobin 11.6 g/dL (13.5-17.5); IMMATURE GRAN ABSOLUTE AUTO 0.03 K/mm3 (0.00-0.10); IMMATURE GRAN PERCENT AUTO 0 % (0-1); LYMPHOCYTES ABSOLUTE AUTO 1.49 K/mm3 (0.84-5.20); LYMPHOCYTES PERCENT AUTO 22 % (21-46); MONOCYTES ABSOLUTE AUTO 0.58 K/mm3 (0.16-1.47); MONOCYTES PERCENT AUTO 9 % (4-13); Mean Corpuscular HGB 28.6 pg (26.0-34.0); Mean Corpuscular Volume 92 fL (80-100); NEUTROPHILS ABSOLUTE AUTO 4.31 K/mm3 (1.96-9.15); NEUTROPHILS PERCENT AUTO 64 % (41-73); Platelet Count 105 K/mm3 (150-400); RDW Coefficient Variation 26.2 % (11.7-14.2); RDW Standard Deviation 86.2 fL (35.1-46.3); Red Blood Cell Count 4.05 M/mm3 (4.30-5.90); White Blood Cell Count 6.79 K/mm3 (4.00-11.30)
[2020-05-08 04:56] LABS: Bun/Creatinine Ratio 14.3 (12.0-20.0); Calcium, Blood 8.2 mg/dL (8.5-10.1); Creatinine, Blood 2.17 mg/dL (0.60-1.20); Potassium, Blood 3.9 mmol/L (3.5-5.5)
[2020-05-08 05:06] LABS: Mean Platelet Volume 10.6 fL (9.1-12.4)
--- NOTE | 2020-05-08 05:49 | NUR ---
SHIFT SUMMARY PATIENT ALERT BUT CONFUSED. HE SPENT MUCH OF THE NIGHT YELLING OUT INTO THE HALLWAY TRYING TO GET ATTENTION. HE DID NOT GET MUCH SLEEP. HAD NO COMPLAINTS OF PAIN. IV'S PATENT AND FLUSHED. BED IN LOWEST POSITION WITH WHEELS LOCKED AND ALARM ON. CALL LIGHT WITHIN REACH. REPORT GIVEN TO ONCOMING RN.
--- NOTE | 2020-05-08 10:35 | NUR ---
PER PATIENT OK TO TALK TO MOMPATT. UPDATED RELATIVE. RELATIVE ADVISED WILL BE LOOKING FOR SNF PLACEMENT BUT HARD TO DO WITH PATINTS DRUG USE. RELATIVE UNAWARE OF PATIENTS PAST DRUG ABUSE AND STS, "HE DOES NOT DO ANY ILLEGAL DRUGS."
--- NOTE | 2020-05-08 21:30 | NUR ---
ASSUMED CARE. AOX3, OCCATIONAL SLURRED SPEECH, ABLE TO GET HIS NEEDS KNOWN. RIGHT SIDE FLACCID. ABLE TO MOVE LEFT WITH NO PROBLEMS. DRESSING TO COCCYX INTAKE BUT BM NOTED, VERY LOOSE. STEAM POWER PLANT OPERATOR CLEANSED UP AND GOT REPOSITIONED. GAVE MEDS PER ORDER. DENIED ANY NEEDS. CALL LIGHT IN REACH.
--- NOTE | 2020-05-09 05:03 | NUR ---
SHIFT SUMMARY: AOX3 BUT DOES GETS SOME CONFUSION IN THE MIDDLE OF THE NIGHT. ALSO CAN GET VERY NEEDY AND AGGRESSIVE AT TIMES. VS HAVE REMAINED STABLE. NO CHANGES IN NEURO'S. LOOSE BM NOTED THIS SHIFT. STATES HE IS ALWAYS THIRSTY, GOOD FLUID INTAKE. ON NECTAR THICK FLUIDS. DRESSING OVER COCCYX WOUND. SCABS ON LEFT HAND IMPROVING. CATHETER REMAINED PATIENT. REPOSITIONED Q2 HRS AND PRN. NO ACUTE CHANGES TO REPORT THIS SHIFT. USES CALL LIGHT APPROPRIATLY.
[2020-05-09 05:24] LABS: BASOPHILS ABSOLUTE AUTO 0.05 K/mm3 (0.00-0.23); BASOPHILS PERCENT AUTO 1 % (0-2); EOSINOPHILS ABSOLUTE AUTO 0.44 K/mm3 (0.00-0.68); EOSINOPHILS PERCENT AUTO 7 % (0-6); Hematocrit 34.4 % (37.0-53.0); Hemoglobin 10.6 g/dL (13.5-17.5); IMMATURE GRAN ABSOLUTE AUTO 0.02 K/mm3 (0.00-0.10); IMMATURE GRAN PERCENT AUTO 0 % (0-1); LYMPHOCYTES ABSOLUTE AUTO 1.55 K/mm3 (0.84-5.20); LYMPHOCYTES PERCENT AUTO 23 % (21-46); MONOCYTES ABSOLUTE AUTO 0.63 K/mm3 (0.16-1.47); MONOCYTES PERCENT AUTO 9 % (4-13); Mean Corpuscular HGB 28.2 pg (26.0-34.0); Mean Corpuscular HGB Conc 30.8 g/dL (31.5-36.5); Mean Corpuscular Volume 92 fL (80-100); NEUTROPHILS ABSOLUTE AUTO 4.12 K/mm3 (1.96-9.15); NEUTROPHILS PERCENT AUTO 60 % (41-73); Platelet Count 116 K/mm3 (150-400); RDW Coefficient Variation 25.8 % (11.7-14.2); RDW Standard Deviation 83.6 fL (35.1-46.3); Red Blood Cell Count 3.76 M/mm3 (4.30-5.90); White Blood Cell Count 6.81 K/mm3 (4.00-11.30)
[2020-05-09 05:43] LABS: Bun/Creatinine Ratio 13.4 (12.0-20.0); Calcium, Blood 7.7 mg/dL (8.5-10.1); Creatinine, Blood 1.94 mg/dL (0.60-1.20); Potassium, Blood 3.9 mmol/L (3.5-5.5)
--- NOTE | 2020-05-09 16:27 | NUR ---
[facility] (DR. VASQUEZ) CALLED TO NOTIFY THIS RN TO STOP HOME MED VOTRIENT WHILE PATIENT IS STILL HOSPITALIZED. DR. BULLARD NOTIFIED AND MEDICATION D/C PER T.O. MEDICATION SENT HOME WITH DAUGHTER.
--- NOTE | 2020-05-09 18:27 | NUR ---
Shift Summary A/Ox3, cooperative with care. Able to make needs known. 2p max assist with TQ2. Daughter at bedside for a portion of the day. Mepilex on coccyx changed. C/O mild pain to R shoulder, nonpharm interventions provided. Denies nausea, vomiting. Patient having loose stools x 2. Gonsales patent and draining. Patient requesting egg crate, will pass onto receiving RN. Call light near.
--- NOTE | 2020-05-09 19:22 | NUR ---
ASSUMED CARE. AOX3, FORGETFUL AT TIMES. DENIES ANY PAIN AT THIS TIME. STATES GOOD APPETITE. HAS HAD SEVERAL LOOSE BM TODAY, WILL HOLD ALL BOWEL CARE. ATTENDS DRY, DRESSING TO BOTTOM CDI. HEELS ELEVATED ON PILLOWS. CATHETER WITH DENIS CLEAR URINE. ABLE TO DRINK THIN LIQUIDS NOW AND DOING WELL ON THEM. DENIES ANY NEEDS. WILL CONTINUE TO MONITOR. CALL LIGHT IS IN REACH.
[2020-05-10 04:51] LABS: BASOPHILS ABSOLUTE AUTO 0.04 K/mm3 (0.00-0.23); BASOPHILS PERCENT AUTO 1 % (0-2); EOSINOPHILS ABSOLUTE AUTO 0.48 K/mm3 (0.00-0.68); EOSINOPHILS PERCENT AUTO 6 % (0-6); Hematocrit 33.6 % (37.0-53.0); Hemoglobin 10.7 g/dL (13.5-17.5); IMMATURE GRAN ABSOLUTE AUTO 0.03 K/mm3 (0.00-0.10); IMMATURE GRAN PERCENT AUTO 0 % (0-1); LYMPHOCYTES ABSOLUTE AUTO 1.83 K/mm3 (0.84-5.20); LYMPHOCYTES PERCENT AUTO 24 % (21-46); MONOCYTES ABSOLUTE AUTO 0.73 K/mm3 (0.16-1.47); MONOCYTES PERCENT AUTO 10 % (4-13); Mean Corpuscular HGB 28.8 pg (26.0-34.0); Mean Corpuscular HGB Conc 31.8 g/dL (31.5-36.5); Mean Corpuscular Volume 91 fL (80-100); NEUTROPHILS ABSOLUTE AUTO 4.57 K/mm3 (1.96-9.15); NEUTROPHILS PERCENT AUTO 60 % (41-73); Platelet Count 118 K/mm3 (150-400); RDW Coefficient Variation 24.7 % (11.7-14.2); RDW Standard Deviation 80.2 fL (35.1-46.3); Red Blood Cell Count 3.71 M/mm3 (4.30-5.90); White Blood Cell Count 7.68 K/mm3 (4.00-11.30)
[2020-05-10 05:08] LABS: Bun/Creatinine Ratio 15.5 (12.0-20.0); Calcium, Blood 7.9 mg/dL (8.5-10.1); Creatinine, Blood 1.74 mg/dL (0.60-1.20); Potassium, Blood 4.2 mmol/L (3.5-5.5)
--- NOTE | 2020-05-10 06:10 | NUR ---
SHIFT SUMMARY: AOX3, DID HAVE SOME CONFUSION UPON AWAKENING LAST NIGHT. ONCE AWAKE HE DID BETTER. SLEPT MOST OF SHIFT, STATING HE WAS VERY TIRED. WAS VERY AGGRESSIVE WITH SPIKE MACHINE HEATER'S YELLING OUT INSTEAD OF USING THE CALL LIGHT. HE ALSO WAS VERY BOSSY AND NEEDY WANTING THE SPIKE MACHINE HEATER'S IN ROOM ALMOST EVERY 30 MINUTES AT TIMES. HAD TO TALK TO HIM ABOUT HIS AGGRESSIVNESS AND DEMANDING BEHAVIOR. HE CONTINUES TO HAVE LOOSE STOOLS. HELD ALL BOWEL CARE MEDS. MILD COUGH NOTED TONIGHT. NO OTHER CHANGES TO NOTE. CALL LIGHT REMAINS IN REACH.
--- NOTE | 2020-05-10 17:53 | NUR ---
Shift Summary A/Ox3, patient cooperative with care. Had PT/OT today. Mom visited today, this RN had BARRIE Warren talk with mom RE discharge planning. Mepilex to coccyx changed. Stool softner and miralax held d/t loose stools. Egg crate applied to bed which improved comfort. TQ2 and PRN for comfort. Questions were answered to mom's satisfaction. Gonsales still intact and draining to gravity. Bed in lowest positon, call light near. VSS. WCTM.
--- NOTE | 2020-05-10 19:20 | NUR ---
ASSUMED CARE. GRECIA VALENTINE, TRYING TO SLEEP, DENIES ANY CHANGES TODAY. INNER RIGHT THIGH HAS THIN LAYER OF SKIN THAT IS TORN, OPEN TO AIR, SHALLOW. DENIES ANY PAIN OR DISCOMFORT. STILL HAVING LOOSE STOOLS. WILL HOLD BOWEL CARE AGAIN. CLEANED UP ROOM. DENIES ANY NEEDS AT THIS TIME. CALL LIGHT IS IN REACH.
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
[2020-05-11 04:55] LABS: BASOPHILS ABSOLUTE AUTO 0.05 K/mm3 (0.00-0.23); BASOPHILS PERCENT AUTO 1 % (0-2); EOSINOPHILS ABSOLUTE AUTO 0.45 K/mm3 (0.00-0.68); EOSINOPHILS PERCENT AUTO 7 % (0-6); Hematocrit 33.3 % (37.0-53.0); Hemoglobin 10.5 g/dL (13.5-17.5); IMMATURE GRAN ABSOLUTE AUTO 0.02 K/mm3 (0.00-0.10); IMMATURE GRAN PERCENT AUTO 0 % (0-1); LYMPHOCYTES ABSOLUTE AUTO 1.64 K/mm3 (0.84-5.20); LYMPHOCYTES PERCENT AUTO 25 % (21-46); MONOCYTES ABSOLUTE AUTO 0.69 K/mm3 (0.16-1.47); MONOCYTES PERCENT AUTO 10 % (4-13); Mean Corpuscular HGB 28.8 pg (26.0-34.0); Mean Corpuscular HGB Conc 31.5 g/dL (31.5-36.5); Mean Corpuscular Volume 92 fL (80-100); NEUTROPHILS ABSOLUTE AUTO 3.79 K/mm3 (1.96-9.15); NEUTROPHILS PERCENT AUTO 57 % (41-73); Platelet Count 128 K/mm3 (150-400); RDW Coefficient Variation 24.2 % (11.7-14.2); RDW Standard Deviation 79.7 fL (35.1-46.3); Red Blood Cell Count 3.64 M/mm3 (4.30-5.90); White Blood Cell Count 6.64 K/mm3 (4.00-11.30)
[2020-05-11 04:56] LABS: Mean Platelet Volume 11.6 fL (9.1-12.4)
[2020-05-11 05:08] LABS: Calcium, Blood 7.9 mg/dL (8.5-10.1); Creatinine, Blood 1.78 mg/dL (0.60-1.20); Potassium, Blood 4.1 mmol/L (3.5-5.5)
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
--- NOTE | 2020-05-11 19:19 | NUR ---
SHIFT SUMMARY: NO ACUTE EVENTS. A&O X 3, R SIDE FLACCID WITH RLE CONTRACTURE. MILLAN DRAINING YELLOW URINE WITH SEDIMENT. TOLERATING DIET. REQUESTS TO BE REPOSITIONED OFTEN, IS PARTICULAR ABOUT HIS CARE. IS AWAITING PLACEMENT.
--- NOTE | 2020-05-12 05:05 | NUR ---
SERVICE STATION EQUIPMENT MECHANIC SUMMARY NO ACUTE CHANGES THIS SHIFT. PT AAOX4. R ARM/LEG FLACCID WITH R LEG CONTRACTURED WELL. REPOSITIONED OFTEN. PT VERY DEMANDING AND RUDE TO STAFF AT TIMES. HELD BEDTIME BOWEL MEDS PT HAD LARGE LIQUID BM JUST BEFOREHAND, THAT WAS PT'S FIRST BM OF THE DAY. VSS, WILL CONTINUE TO MONITOR.
--- NOTE | 2020-05-12 19:32 | NUR ---
SHIFT SUMMARY: MOVED PATIENT TO ROOM WITH CEILING LIFT TO AID IN GETTING HIM OOB TO CHAIR. MILLAN D/C'D WITHOUT INCIDENT, HAS NOT VOIDED YET. HAVING LOOSE STOOL X 2 TODAY. UPDATED PHOTO TAKEN OF SACRAL ULCER, IN CHART. BOTH IV SALINE LOCKS REMOVED; L AC HAS SOME BRUISING. PATIENT IS NEEDY AND CAN BE DEMANDING AT TIMES, WAS NOT HAPPY ABOUT ROOM CHANGE. PARTICIPATED IN THERAPY TODAY.
--- NOTE | 2020-05-13 05:58 | NUR ---
ANNEALING OPERATOR SUMMARY PT HAD MILLAN CATH REMOVED ON DAY SHIFT IN THE EARLY AFTERNOON AND HAD NOT VOIDED FOR REST OF THAT SHIFT. HOWEVER, PT HAS HAD MULTIPLE INCONTINENT VOIDS THIS SHIFT. PT STILL NEEDY AND CALLS CONSTANTLY FOR SMALL THINGS AND GETS IRRITABLE IF HE DOESN'T GET HIS WAY RIGHT AWAY. VSS, WILL CONTINUE TO MONITOR.
--- NOTE | 2020-05-13 17:50 | NUR ---
SHIFT SUMMARY NO ACUTE CHANGES THIS SHIFT. YANA BOUDREAUX'Nancy YESTERDAY. PT NOW HAVING INCONT. VOIDS. BOWEL MEDS HELD THIS AM PER REQUEST OF THE PATIENT. R SIDE FLACCID AND TWO PERSON TO TURN/CHANGE. BED REST. PT ABLE TO MAKE NEEDS KNOWN. VSS.
--- NOTE | 2020-05-13 23:50 | NUR ---
AWAKE AT INTERVALS, NEURO CHECK REVEALED RIGHT SIDE FLACCID PER REPORTED BY AM NURSE. CONTINUES TO ASSIST WITH HIS REPOSITIONING. CALL LIGHT IN REACH. TOLERATING MEDS WHOLE IN "COLD" APPLESAUCE.
--- NOTE | 2020-05-14 03:29 | NUR ---
SHIFT SUMMARY AWAKE AT INTERVALS THROUGHOUT SHIFT. HOB ELEVATED FOR COMFORT, REPOSITIONED AT INTERVALS FOR COMFORT WELL - RIGHT SIDE FLACCID. VOICED PAIN, BUT REFUSED ANALGESICS, PREFERRED TO REPOSITION INSTEAD. CURRENTLY RESTING QUIETLY. CALL LIGHT IN REACH
--- NOTE | 2020-05-14 17:16 | NUR ---
PATIENT A/OX4, CHAIRBOUND AT BASELINE DUE TO HX OF CVA WITH R SIDED DEFECITS. VSS THIS SHIFT, ON RA. TOLERATING MS DIET. MEPILEX DRESSING TO PRESSURE SORE TO COCCYX REMAINS C/D/I. INCONTINENT OF URINE, WEARING ATTENDS. CALM AND COOPERATIVE WITH CARE.
--- NOTE | 2020-05-14 19:21 | NUR ---
AWAKE AT SHIFT COMMENCE. ASKED FOR AND RECEIVED WARM WET CLOTH FOR SELF FACE WASHING. VOICED APPOLOGY FOR BEING SO NEEDY. REASURRANCE GIVEN. CALL LIGHT IN REACH. RIGHT ARM REMAINS FLACCID, RIGHT LEG STIFF AND DOES NOT MOVE ON ITS OWN POWER.
--- NOTE | 2020-05-15 03:18 | NUR ---
SHIFT SUMMARY AWAKE AT INTERVALS FOR ASSISTANCE WITH REPOSITIONING AND CLEANING FOR INCONTINENCE. REPORTED APPARENT YELLOW MUCOID BM EARLIER. WILL ASSESS IF THIS HAPPENS AGAIN - SLATE ROOFER HELPER AWARE. CALL LIGHT IN REACH. MEPILEX DRESSING OF COCCYX INTACT. WILL CONTINUE TO MONITOR. RIGHT SIDE DEFICIT CONTINUES. RIGHT ARM FLACCID AND RIGHT LEG STILL STIFF.
--- NOTE | 2020-05-15 19:01 | NUR ---
PT RESTING IN BED AFTER DINNER, ALERT AND ORIENTED, MAKES NO COMPLIANTS, NO IV ACCESS AND BELONGINGS WITHIN REACH. PT REMAINS BEDBOUND. NO ACUTE CHANGES THIS SHIFT. STAFF WILL CONT. TO MONITOR.
--- NOTE | 2020-05-16 03:40 | NUR ---
SHIFT SUMMARY AWAKE AT INTERVALS WITH REQUESTS FOR FOOD, REPOSITIONING AND INCONTINENCE CARE. CALL LIGHT IN REACH. RIGHT SIDE REMIAINS WITH DEFICIT TO THAT OF THE LEFT. RIGHT ARM REMAINS FLACCID, WHICH HE MOVES WITH HIS LEFT HAND/ARM. CAUTIONING STAFF NOT TO TOUCH HIS RIGHT SHOULDER IT CAUSES PAIN WHEN DOING SO. CURRENTLY RESTING QUIETLY.
--- NOTE | 2020-05-16 18:42 | NUR ---
SHIFT SUMMARY PT MAKING REQUESTS DURING REPORT THIS MORNING. REQUESTS COMPLETED AND PT HAS BEEN WITH MINIMAL DEMANDS SINCE. WAS UP IN RECLINER CHAIR FOR SEVERAL HOURS TODAY AND WAS A LIFT BACK INTO BED. DRESSING CHANGED TO COCCYX WOUND. ENCOURAGED TO STAY OFF HIS BUTTOCKS AND STAY ONE SIDE OR THE OTHER. EMPHASIZED TO HIM WOUND WOULD NOT HEAL IF HE DIDN'T PARTICIPATE AND STAY OFF HIS COCCYX.
--- NOTE | 2020-05-16 23:20 | NUR ---
AWAKE AT ROUNDING. REPOSITIONED. CALL LIGHT IN REACH. NO C/O VOICED
--- NOTE | 2020-05-17 03:47 | NUR ---
SHIFT SUMMARY HOB REMAINS ELEVATED FOR COMFORT. CONTINUES TO DISPLAY RIGHT SIDE DEFICIT COMPARED TO THE LEFT. PT ASSISTW WITH REPOSITIONING. HSA BEEN RESTING QUIETLY WITH FREQUENT REQUESTS. CALL LIGHT IN REACH
--- NOTE | 2020-05-17 13:20 | NUR ---
permission to provide care Kavitha and Kristie Foster
--- NOTE | 2020-05-17 19:32 | NUR ---
END OF SHIFT SUMMARY: PATIENT DENIED PAIN OR DISCOMFORT THROUGHOUT THE SHIFT. PATIENT ALERT AND ORIENTED X4. NO CHANGES TO NEURO STATUS THROUGHOUT THE SHIFT. PATIENT WORKED WITH OT AND WAS AGREEABLE TO GET UP TO THE CHAIR VIA LIFT. PATIENT CONTINUES TO BE INCONTINENT WITH VOIDS, BUT OCCASIONALLY IS ABLE TO SENSE THE NEED TO VOID. PATIENT REPORTED FEELING MOTIVATED TO IMPROVE STRENGTH AND MOBILITY TODAY. PATIENT CALM AND COOPERATIVE THROUGHOUT SHIFT.
--- NOTE | 2020-05-17 20:20 | NUR ---
ASSUMED CARE. GRECIA VALENTINE, COOPERATIVE. DEER FARMER IN ROOM, JUST DID VITALS. ATTENDS WET, CHANGED. LUNGS DIMINISHED. DENIES PAIN. HR SINUS. GOOD APPETITE. ABLE TO USE CALL LIGHT APPROPRIATLY. DENIES ANY CHANGES. STILL AWAITING PLACEMENT.
[2020-05-18 05:40] LABS: BASOPHILS ABSOLUTE AUTO 0.05 K/mm3 (0.00-0.23); BASOPHILS PERCENT AUTO 1 % (0-2); EOSINOPHILS ABSOLUTE AUTO 0.29 K/mm3 (0.00-0.68); EOSINOPHILS PERCENT AUTO 3 % (0-6); Hematocrit 31.1 % (37.0-53.0); Hemoglobin 9.6 g/dL (13.5-17.5); IMMATURE GRAN ABSOLUTE AUTO 0.08 K/mm3 (0.00-0.10); IMMATURE GRAN PERCENT AUTO 1 % (0-1); LYMPHOCYTES PERCENT AUTO 25 % (21-46); MONOCYTES ABSOLUTE AUTO 0.89 K/mm3 (0.16-1.47); MONOCYTES PERCENT AUTO 10 % (4-13); Mean Corpuscular HGB 29.4 pg (26.0-34.0); Mean Corpuscular HGB Conc 30.9 g/dL (31.5-36.5); Mean Corpuscular Volume 95 fL (80-100); Mean Platelet Volume 11.3 fL (9.1-12.4); NEUTROPHILS ABSOLUTE AUTO 5.16 K/mm3 (1.96-9.15); NEUTROPHILS PERCENT AUTO 60 % (41-73); Platelet Count 336 K/mm3 (150-400); RDW Coefficient Variation 24.5 % (11.7-14.2); RDW Standard Deviation 83.8 fL (35.1-46.3); Red Blood Cell Count 3.26 M/mm3 (4.30-5.90); White Blood Cell Count 8.67 K/mm3 (4.00-11.30)
--- NOTE | 2020-05-18 05:43 | NUR ---
SHIFT SUMMARY: VS WNL, AFEBRILE. GOOD APPETITE. SOME SKIN BREAKDOWN IN GROIN, INNER THIGH, AND COCCYX. WOULD BENIFIT FROM ANTI-FUNGAL POWDER. ENCOURAGED TO CALL WHEN HE IS WET. SLEPT OFF AND ON THIS SHIFT. NO COMPLAINTS NOTED. NO ACUTE CHANGES TO NOTE. CALL LIGHT REMAINS IN REACH.
[2020-05-18 06:04] LABS: Albumin, Blood 1.7 g/dL (3.4-5.0); Anion Gap 7 mmol/L (6-16); Blood Urea Nitrogen 27 mg/dL (8-24); Bun/Creatinine Ratio 18.6 (12.0-20.0); CO2, Blood 25 mmol/L (21-32); Calcium, Blood 8.2 mg/dL (8.5-10.1); Chloride, Blood 107 mmol/L (98-108); Creatinine, Blood 1.45 mg/dL (0.60-1.20); Glomerular Filtration Rate 55 (60-); Glucose, Blood 85 mg/dL (70-99); Potassium, Blood 4.6 mmol/L (3.5-5.5); Sodium, Blood 139 mmol/L (136-145)
--- NOTE | 2020-05-18 19:18 | NUR ---
Shift Summary A/Ox4, pleasant this shift. ST eval completed and diet order changed. Patient still requiring supervision for all PO intake, patient is agreeable to this. No villanueva catheter at start of shift, incontinent with attends in place. Mepilex to coccyx changed. Worked with PT/OT. Neuro remains unchanged. Report given to oncoming RN.
--- NOTE | 2020-05-18 19:39 | NUR ---
ASSUMED CARE. GRECIA IS SITTING UP WATCHING TV. DID COMPLAIN ABOUT NOT BEING ABLE TO DRINK ALONE ANYMORE, THAT HIS SIPPY CUPS HAVE BEEN REMOVED. DISCUSSED REASON FOR CHANGE, AND ENCOURAGED PROPER DRINKING TO PREVENT ASPIRATION. ATTENDS IS DRY. REDNESS TO GROIN FOLDS. ENCOURAGED TO CALL WHEN WET FOR CHANGING RIGHT AWAY. DENIES ANY NEEDS AT THIS TIME. CALL LIGHT IN REACH.
--- NOTE | 2020-05-19 06:09 | NUR ---
SHIFT SUMMARY: GRECIA HAS BEEN VERY MICHELE TONIGHT, ARGUEING WITH SEED CLEANING MACHINE OPERATOR. CALLING FOR THINGS BUT WHEN SHE GETS THERE HE GIVES HER AN ATTITUDE CAUSING AN ARGUMENT TO OCCUR. HE IS VERY FRUSTRATED THAT HE CAN NOT HAVING ANYTHING TO EAT AND DRINK WITH OUT A STAFF MEMBER THERE. HIS FRUSTRATIONS HAVE TRANSFERRED TO THE STAFF. VS HAVE BEEN STABLE, THERE HAS BEEN NO ACUTE CHANGES OTHER THEN MENTIONED ABOVE. CALL LIGHT HAS BEEN IN REACH, USED APPROPRIATLY.
--- NOTE | 2020-05-19 16:51 | NUR ---
Shift Summary A/Ox4, pleasant and cooperative. No behavioral issues noted. ST worked with patient, patient to be intermittent supervision with PO intake (see orders). Tolerating PO intake well, no signs of aspiration, patient clearing throat when eating and taking small bites. Able to make needs known. Up in chair for most of the day. Denies pain, nausea, vomiting, shortness of breath. Patient in good spirits today looking forward to watching the SuperBowl this Friday. WCTM.
--- NOTE | 2020-05-19 20:20 | NUR ---
ASSUMED CARE. GRECIA IS ON THE PHONE TALKING WITH FAMILY. DENIES ANY CHANGES OR CONCERNS. ATTENDS IS DRY AT THIS TIME. SKIN STILL HAS BREAKDOWN IN GROIN AND INNER THIGHS, DENIES ANY NEEDS, PM MEDS GIVEN. CALL LIGHT IN REACH.
--- NOTE | 2020-05-19 22:06 | NUR ---
ROUNDED ON PATIENT, HE IS FAST ASLEEP. NO SIGNS OF DISTRESS, CALL LIGHT IS IN REACH.
--- NOTE | 2020-05-20 05:47 | NUR ---
SHIFT SUMMARY: NO ACUTE CHANGES. NO BEHAVIORAL ISSUES. SLEPT OFF AND ON ENTIRE SHIFT. VS WNL. STILL AWAITING PLACEMENT. CALL LIGHT IS IN REACH.
--- NOTE | 2020-05-20 17:19 | NUR ---
PT AOX4 AND COOPERATIVE OF CARE. PT HAS BEEN DOING WELL AND HAS BEEN GOOD TO WORK WITH. PT HELPS TURN HE IS INCONTENT. HE WILL TRY TO USE URINAL. PT HAS A MEPAPLEX TO COCCYX HE HAS A PRESSURE ULCER. PT IS BEING TURNED Q2 HRS AND HELPS WITH THESE TURNS AND POSITIONING. PT HAS BEEN UP IN CHAIR TODAY AND SEEMS TO ENJOY BEING UP. LIFT IS USED TO TRANSFER. CALL LIGHT IS WITHIN REACH WILL CONTINUE TO MONITOR.
--- NOTE | 2020-05-21 03:18 | NUR ---
SHIFT SUMMARY PATIENT HAD NO ACUTE CHANGES OBSERVED. AXO X 3 AND BEDREST IN LIFT ROOM. TAKES MEDICATION WHOLE IN APPLE SAUCE. FEEDER. NO IV ACCESS. ABLE TO MAKE NEEDS KNOWN. VSS/AFEBRILE. DENIES PAIN, SOB, AND N/V. COOPERATIVE WITH CARE. CALL LIGHT IN REACH. BED IN LOWEST POSITION. WILL CONTINUE TO MONITOR UNTIL DAY SHIFT NURSE ASSUMES CARE.
--- NOTE | 2020-05-21 18:01 | NUR ---
PT HAS HAD NO CHANGES. PT CONTINUE TO BE AOX4 AND COOPERATIVE OF CARE. PT WAS LIFTED TO CHAIR TODAY AND DID WELL. PT IS ABLE TO MAKE NEEDES KNOWN AND HAS CALL LIGHT WITHIN REACH. PT CONTINUES TO BE INCONTINENT. WILL CONTINUE TO MONITOR.
--- NOTE | 2020-05-21 19:10 | NUR ---
ASSUMED CARE RECEIVED REPORT FROM ALYCE BRADLEY. PT ASLEEP, IN NO ACUTE DISTRESS, RESPS E/U. NO ACUTE NEEDS ASSESSED. CALL LIGHT, POSSESSIONS IN REACH. CONTINUE TO MONITOR.
--- NOTE | 2020-05-22 04:43 | NUR ---
SHIFT SUMMARY PT ASLEEP, NO ACUTE DISTRESS NOTED. NO ACUTE CHANGES IN CONDITION OVERNIGHT. VS REVIEWED,WNL. PT HAS CALLED APPROPRIATELY T/O NIGHT, GOOD PARTICIPATION WITH CARES. NO ACUTE CHANGES IN NEURO STATUS NOTED. DENIES NEEDS AT THIS TIME. CALL LIGHT, POSSESSIONS IN REACH, BED IN LOW POSITION WITH ALARMS ON. CONTINUE TO MONITOR, REPORT OFF TO DAY RN.
--- NOTE | 2020-05-22 17:18 | NUR ---
PT PLEASANT TODAY. DENIES PAIN. ABLE TO MOVE TO RECLINER CHAIR WITH P/T TODAY. LIFT NOT USED TODAY. STILL AWAITING SNF PLACEMENT. RT SIDE MOSTLY FLACID. SOME GROSS MOVEMNT IN RT ARM. STILL CONTRACTS. RT LEG CAN BEND KNEE SOME, BUT ONLY A LITTLE, ALSO NO PEDAL DORSAL MOVEMENT. PT STATES SLIGHT SLUR IS FROM PRIOR CVA. NO OTHER CONCERNS TODAY. BED IN LOW POSITION,C ALL LITE IN REACH, CALLS APPROP
--- NOTE | 2020-05-23 06:42 | NUR ---
SHIFT SUMMARY AOX3. VSS. DENIES PAIN, N/V OR DYSPNEA. HAS GROSS MOVEMENT c R FOREARM, R LEG FLACCID. CLEANSED & CHANGED MEPILEX ON STAGE 2 PRESSURE SORE. TURNED & REPOSITIONED OFF SORE. INCONTINENT OF BM & URINE. AWAITING PLACEMENT. CALL LIGHT IN REACH & PT ABLE TO MAKE NEEDS KNOWN.
--- NOTE | 2020-05-23 17:59 | NUR ---
SHIFT SUMMARY PT IS A&OX4 AND ABLE TO MAKE NEEDS KNOWN. PT HAS A HISTORY OF CVA AND HAS RIGHT SIDED WEAKNESS, ABLE TO MAKE GROSS MOVEMENTS. PT IS ABLE TO ROLL ON TO RIGHT SIDE WITH LITTLE ASSISTANCE. HIS UNCLE CAME THIS AFTERNOON AND GAVE HIM A HAIR CUT. PT TOOK HIS PILLS WHOLE WITH COLD APPLESAUCE. PT DENIES P/N/V DURING SHIFT. PT CURENTLY SITTING UP IN BED EATING DINNER, CALL LIGHT W/IN REACH.
--- NOTE | 2020-05-24 06:04 | NUR ---
SHIFT SUMMARY NO ACUTE CHANGES THIS SHIFT. AOX4. VSS. R SIDE WEAK FROM HX CVA, HAS GROSS MOVEMENT c R ARM, R FOOT TOES HAVE VERY MINIMAL WIGGLING. DENIES PAIN, N/V, DYSPNEA. AWAITING PLACEMENT. CALL LIGHT IN REACH & ABLE TO MAKE NEEDS KNOWN.
--- NOTE | 2020-05-24 17:22 | NUR ---
SHIFT SUMMARY PT IS A&OX4. HE IS ABLE TO MAKE NEEDS KNOWN. PT WAS TRASFERED TO CHAIR VIA LIFT. PT HAD FAMILY MEMBER VISIT AND BRING HIM DINNER. PT DENIES P/N/V DURING SHIFT. NO ACUTE CHANGES THIS SHIFT. R. SIDED WEAKNESS FROM PREVIOUS CVA, GROSS MOVEMENT OF RIGHT ARM AND FOOT. CALL LIGHT W/IN REACH.
--- NOTE | 2020-05-24 19:15 | NUR ---
ASSUMED CARE RECEIVED REPORT FROM ALYCE TORRE. PT ASLEEP, IN NO ACUTE DISTRESS, RESPS E/U. NO ACUTE NEEDS ASSESSED AT THIS [place].E. CALL LIGHT, POSSESSIONS IN REACH, CONTINUE TO MONITOR.
--- NOTE | 2020-05-25 06:11 | NUR ---
SHIFT SUMMARY PT RESTING, IN NO ACUTE DISTRESS. WAS MONITORED EVERY 1-2 HOURS WITH NEEDS MET. VS REVIEWED, WNL. PT HAS HAD NO ACUTE CHANGES IN CONDITION T/O NIGHT, GROSS MOVEMENT TO RUE/RLE NOTED, STRENGTH APPEARS TO BE IMPROVING. CALLED APPROPRIATELY TO MAKE NEEDS KNOWN, ATTEMPTED USE OF A CONDOM CATH FOR FREQUENT EPISODES OF INCONTINENCE, PT APPEARED TO TOLERATE WELL, NO C/O DISCOMFORT. PLEASANT AND COOPERATIVE WITH CARES. NO ACUTE NEEDS ASSESSED AT THIS TIME, FACER OPERATOR BRINGING PT COFFEE. CALL LIGHT, POSSESSIONS IN REACH, BED IN LOW POSITION WITH ALARMS ON. CONTINUE TO MONITOR, REPORT OFF TO DAY RN.
--- NOTE | 2020-05-25 17:31 | NUR ---
PT AOX4 AND COOPERATIVE OF CARE. PT SEEMS TO BE DOING WELL NO REAL CHANGES AT THIS TIME. PT CALLS APPROPRIATELY AND HAS CALL LIGHT WITHIN REACH. PT DOING WELL TRYING TO HELP WHEN BEING CHANGED. NO DISTRESS NOTED AND BED ALARM IN PLACE WILL CONTINUE TO MONITOR.
--- NOTE | 2020-05-25 19:05 | NUR ---
ASSUMED CARE RECEIVED REPORT FROM ALYCE BRADLEY. PT ASLEEP, IN NO ACUTE DISTRESS. NO ACUTE NEEDS ASSESSED AT THIS TIME. CALL LIGHT, POSSESSIONS IN REACH, BED IN LOW POSITION WITH ALARMS ON. CONTINUE TO MONITOR.
--- NOTE | 2020-05-26 06:44 | NUR ---
SHIFT SUMMARY PT HAS BEEN SLEEPING T/O MUCH OF THE NIGHT, IN NO ACUTE DISTRESS. VS REVIEWED, WNL. PT CONTINUES TO HAVE GROSS MOVEMENT OF RT SIDE, NO C/O NUMBNESS/TINGLING. DRSG CHANGED TO HEIDI, C/D/I. CALLED APPROPRIATELY. NO ACUTE NEEDS ASSESSED AT THIS TIME. CALL LIGHT, POSSESSIONS IN REACH, BED IN LOW POSITION, ALARMS ON. REPORT GIVEN TO ALYCE BRADLEY.
--- NOTE | 2020-05-26 18:27 | NUR ---
PT AOX4 AND COOPERATIVE OF CARE. PT HAS NO CHANGES. PT IS DOING WELL WORKING WITH HIS CARE GIVERS AND SEEMS TO BE DOING WELL. PT HAD A CONDOM CATH AND THIS SEEMS TO BE WORKING WELL AT THIS TIME. PT HAS CALL LIGHT WITHIN REACH WILL CONTINUE TO MONITOR.
--- NOTE | 2020-05-27 04:24 | NUR ---
SHIFT SUMMARY ASSUMED CARE OF PT AT 1900. PT IS A/OX4. HEART SOUNDS REGULAR, LUNG SOUNDS CLEAR. PT WAS INCONTIENT OF URINE T/O THE NIGHT. MEPILEX DRESSING CHANGED. PT HAS SMALL PRESSURE ULCER ON BOTTOM. PT STATES HE HAS NO NEW CONCERNS. CALL LIGHT IN REACH, BED IN LOWEST POSTION.
--- NOTE | 2020-05-27 16:59 | NUR ---
NO ACUTE CHANGES THIS SHIFT. PATIENT CONTINUES TO AWAIT PLACEMENT.
--- NOTE | 2020-05-28 05:13 | NUR ---
SHIFT SUMMARY ASSUMED CARE OF PT AT 1900. PT IS A/OX4. HEART SOUNDS REGULAR. LUNG SOUNDS CLEAR. PT WAS INCONTIENT OF BOWEL AND BLADDER THIS EVENING. MEPELIX CHANGES ON COCCYX, PT DENIES PAIN. PT STATES THAT HE WISHES HE COULD GET OUT OF BED MORE BEUCASE EATING IN BEAD MAKES HIM FEEL BLOATED. CALL LIGHT IN REACH, BED IN LOWEST POSTION.
--- NOTE | 2020-05-28 18:20 | NUR ---
NO ACUTE CHANGES THIS SHIFT. VSS, ON RA. AWAITING PLACEMENT.
--- NOTE | 2020-05-29 16:16 | NUR ---
ALERT. ORIENTED. ABLE TO USE SLIDER BOARD TO GET TO AND FROM CHAIR/RECLINER. NO ACUTE CHANGES. DENIES ANY PAIN OR DISCOMFORT. AWAITING PLACEMENT.
--- NOTE | 2020-05-30 04:27 | NUR ---
SHIFT SUMMARY ADMITTED FOR CVA. FULL CODE. PLAN IS FOR PLACEMENT. THIS IS A COMPLEX PLACEMENT. SOFT BITE SIZE DIET. PT IS A FEEDER. HE IS INCONTINENT. PILLS ARE GIVEN WHOLE IN APPLESAUCE. NO NEW CONCERNS THIS SHIFT
--- NOTE | 2020-05-30 16:06 | NUR ---
SHIFT SUMMARY NO ACUTE CHANGES TO PRESENT THIS SHIFT. PT UP TO CHAIR AT BS FOR MEALS. PT USING SLIDE BOARD TO TX TO CHAIR AND BACK TO BED. HX OF CVA WITH R SIDE DEFICITS. ONLY VERY SM AMT OF CONTROLLED MOVEMENT TO R EXTREMITIES. PT CONTINUES TO WAIT PLACEMENT. INCONTINENT OF BOWEL AND BLADDER. REPORTS BEING A FEEDER HE IS UNABLE TO USE RH. MEDS TAKEN WHOLE IN APPLESAUCE. WOUND TO COCCYX WITH MEPILEX IN PLACE. PT FLOATED ON PILLOWS TO KEEP OFF BUTTOCKS. PT VERY NEEDY. USES CALL LT FREQUENTLY. ABLE TO MAKE NEEDS KNOWN.
--- NOTE | 2020-05-31 05:44 | NUR ---
SHIFT SUMMARY ADMITTED FOR CVA. FULL CODE. AWAITING COMPLEX PLACEMENT. HE TAKES PILLS WHOLE IN APPLESAUCE. RIGHT SIDED DEFICITS. HE USES A SLIDER BOARD TO TRANSFER FROM BED TO CHAIR. HE IS A&O X4. NO NEW CONCERNS THIS SHIFT.
--- NOTE | 2020-05-31 16:46 | NUR ---
SHIFT SUMMARY PT AXO, PLEASANT AND COOPERATIVE WITH CARE THOUGH EMOTIONAL AT TIMES. NO ACUTE CHANGES THIS SHIFT. PT DENIES PAIN, SOB AND N/V. PATIENT WORKED WITH PHYSICAL AND OCCUPATIONAL THERAPY, SEE NOTE. NO IV IN PLACE. MEPILEX ON COCCYX. BED IN LOW POSITION, CALL LIGHT WITHIN REACH.
--- NOTE | 2020-06-01 07:22 | NUR ---
SHIFT SUMMARY PT IS A 49 Y/O MALE, ADMITTED FOR A CVA. PT HAS NOTED R-SIDE DEFICIT, CURRENTLY BEDREST/LIFT. A&O X 4. NO C/O PAIN, NAUSEA OR SOB DURING THE NIGHT. VITAL SIGNS STABLE. NO ACUTE CHANGES IN PT CONDITION NOTED DURING THE NIGHT. REPORT GIVEN TO ONCOMING RN.
--- NOTE | 2020-06-01 18:04 | NUR ---
NO ACUTE CHANGES THIS SHIFT. PATIENT AWAITING PLACEMENT. MEPILEX DRESSING TO COCCYX CHANGED TODAY. PATIENT WS CALM AND COOPERATIVE WITH CARE THIS SHIFT.
--- NOTE | 2020-06-02 06:35 | NUR ---
SHIFT SUMMARY PT IS A 49 Y/O MALE, ADMITTED FOR CVA. HE IS A&O X 4, WITH R SIDE DEFICITS. BEDREST, INCONTINENT, TURN Q2H. NO C/O PAIN, NAUSEA OR SOB. VITAL SIGNS STABLE. PT SLEPT WELL DURING THE NIGHT. NO ACUTE CHANGES IN PT CONDITION NOTED. WILL CONTINUE TO MONITOR AND TREAT PER EMAR UNTIL HAND OFF TO DAY SHIFT RN.
--- NOTE | 2020-06-02 16:53 | NUR ---
NO ACUTE CHANGES THIS SHIFT. VSS, ON RA. SPENT MOST OF THE DAY UP IN CHAIR. CEILING LIFT USED FOR TRANSFER. MEIPLEX TO PRESSURE SORE CHANGED THIS AM AND REMAINS C/D/I. [facility] OUT [facility] HERE TO ASSESS PATIENT TODAY. PATIENT FEELS BELA IS TOO FAR FROM FAMILY AND DOESN'T THINK THAT WOULD BE A GOOD FIT FOR HIM. CAOOPERATIVE WITH CARE TODAY. ABLE TO MAKE NEEDS KNOWN.
--- NOTE | 2020-06-03 05:50 | NUR ---
SHIFT SUMMARY ADMITTED FOR CVA. FULL CODE. PLAN IS FOR PLACEMENT, COMPLICATING FACTORS. ASPIRATION PRECAUTIONS, MEDS WHOLE IN COLD APPLESAUCE. RIGHT SIDED DEFICITS. LIFT PT. INCONTINENT, ATTENDS IN PLACE. NO IV ACCESS. ROOM AIR. NO NEW CONCERNS THIS SHIFT.
--- NOTE | 2020-06-03 18:24 | NUR ---
SHIFT SUMMARY. A&OX4, PLEASANT AND COOPERATIVE WITH CARE. CONTIUES WITH R SIDED WEAKNESS, UNABLE TO BARE WEIGHT ON R SIDE, R LEG BASICALLY FLACCID. NO ISSUES WITH SWALLOWING. DRESSING TO COCCYX AND BUTTOCKS C/D/I. PT UP TO CHAIR MOST OF AFTERNOON. NO NEW CHANGES OR CONCERNS.
--- NOTE | 2020-06-04 05:45 | NUR ---
SHIFT SUMMARY A/O, ABLE TO MAKE NEEDS KNOWN. COOPERATIVE WITH CARE. CALLS AND ANSWERS QUESTIONS APPROPRIATELY. NO C/O PAIN/DISCOMFORT. APPEARED TO REST MUCH OF THE NIGHT. INCONT /c ROUTINE ATTENDS CHECKS AND REPOSITIONING TOLERATED. CONTINUES TO AWAIT PLACEMENT. NO ACUTE CHANGES NOTED OVERNIGHT. VSS/AFEBRILE. BED REMAINED IN LOWEST POSITION. CALL LIGHT AND BELONGINGS WITHIN REACH. CONTINUE WITH CURRENT PLAN OF CARE. REPORT TO ONCOMING RN.
--- NOTE | 2020-06-04 18:36 | NUR ---
SHIFT SUMMARY. PT DENIES PAIN, N/V, SOB. PLEASANAT AND COOPERATIVE WITH CARE. NO NEW CHANGES OR CONCERNS.
--- NOTE | 2020-06-04 19:10 | NUR ---
ASSUMED CARE RECEIVED REPORT FROM ALYCE MARRUFO. PT ASLEEP, IN NO ACUTE DISTRESS. NO ACUTE NEEDS ASSESSED AT THIS TIME. CALL LIGHT, POSSESSIONS IN REACH, BED IN LOW POSITION. CONTINUE TO MONITOR.
--- NOTE | 2020-06-05 06:22 | NUR ---
CRIMINAL JUDGE SUMMARY PT RESTING COMFORTABLY, IN NO ACUTE DISTRESS. SLEPT T/O NIGHT, VS REVIEWED, WNL. NO ACUTE CHANGES IN CONDITION T/O NIGHT. DENIES NEEDS AT THIS TIME. CALL LIGHT, POSSESSIONS IN REACH, BED IN LOW POSITION. CONTINUE TO MONITOR, REPORT OFF TO DAY RN.
--- NOTE | 2020-06-05 18:02 | NUR ---
SHIFT SUMMARY PT AOX4; CALLS APPROPRIATELY. PT SAT DOWN IN RECLINER FOR LUNCH TIME. PT STILL AWAITS FOR PLACEMENT. DENIES PAIN OR SOB. PT IS INCONTINENT AND CHANGE NEEDED. PT HAS RIGHT SIDED DEFICIT, BUT ABLE TO REPOSTION. BED IS IN THE LOWEST POSITION AND CALL LIGHT WITHIN REACH
--- NOTE | 2020-06-05 22:34 | NUR ---
ASSUMPTION OF CARE. AOX3, ABLE TO MOVE SELF IN BED, CHANGED ATTENDS, SATURATED, URINE YELLOW. SKIN DARK STAINING IN GROIN BUT NO REDNESS CURRENTLY, DRESSING TO BOTTOM IS CDI. REPOSITIONS SELF FOR THE MOST PART. MEDS GIVEN IN APPLESAUCE. DENIES ANY PAIN. GAVE FOOD AND DRINK PER DIET. CALL LIGHT IS IN REACH.
--- NOTE | 2020-06-06 05:25 | NUR ---
SHIFT SUMMARY: AOX3, COOPERATIVE. HAS DENIED ANY ACUTE CHANGES OR CONCERNS. STILL AWAITING PLACEMENT. VS WNL, AFEBRILE. DRESSING TO COCCYX REMAINED INTAKE. REPOSITIONED SELF IN BED AT TIMES. NO OTHER CHANGES TO REPORT CALL LIGHT IN REACH.
--- NOTE | 2020-06-06 17:03 | NUR ---
SHIFT SUMMARY- PT A/OX3, PLEASANT AND COOPERATIVE T/O THE DAY. PT DENIES ANY COMPLAINTS T/O THE DAY. LS CLEAR, ON RA. PT UP TO CHAIR USING THE SONIDO LIFT AND PT DID WELL. RIGHT ARM WITH GROSS MOVEMENT AND RIGHT LEG FLACCID, PT USES LEFT ARM AND LEG TO ASSIST WITH RIGHT. PT CONTINUES TO AWAIT PLACEMENT.
--- NOTE | 2020-06-06 22:00 | NUR ---
ASSUMPTION OF CARE. GRECIA REPORTS HE HAS BEEN VERY TIRED TODAY. HE DOES THIS EVERY FEW DAYS WHERE HE GETS WORN OUT. HE SAID RICKKen CAME AND GOT HIS WHEELCHAIR HE WAS ONLY RENTING IT FOR SOME TIME AND THAT TIME IS OVER. HE NEEDS TO SPEAK TO HIS DOCTOR ABOUT GETTING ONE FOR HOME. WE DISCUSSED IN DETAIL REQUIRMENTS FOR POWERED WHEELCHAIR. WILL TRY AND PROVIDE INFORMATION TONIGHT FOR HIM. MEDS GIVEN. CALL LIGHT IN REACH.
--- NOTE | 2020-06-07 06:04 | NUR ---
SHIFT SUMMARY: GRECIA HAD A GOOD NIGHT, SLEPT MOST OF SHIFT. DENIED ANY COMPLAINTS OR CONERNS. VS WNL, NO PAIN OR DISCOMFORT. GOOD APPETITE. ABLE TO REPOSITION AND MOVE SELF IN BED. SKIN REMAINED DRY. NO ACUTE CHANGES TO NOTE. CALL LIGHT IS IN REACH.
--- NOTE | 2020-06-07 18:47 | NUR ---
PT RESTING IN BED AFTER DINNER. PT MAKES NO COMPLAINTS AT THIS TIME. PT WAS UP IN WHEELCHAIR THIS SHIFT VISITING WITH FAMILY. PT REMAINS ALERT AND ORIENTED X4. BED IN LOW POSITION, CALL LIGHT WITHIN REACH, STAFF WILL CONT TO MONITOR.
--- NOTE | 2020-06-07 19:35 | NUR ---
ASSUMPTION OF CARE. GRECIA WAS SLEEPING, WOKE UP EASILY. DENIES ANY CHANGES TODAY. NO PAIN OR DISCOMFORT. HE GAVE HIS AUNT THE INFORMATION FOR THE WHEELCHAIR. DENIES ANY NEEDS. CALL LIGHT IS IN REACH.
--- NOTE | 2020-06-07 23:45 | NUR ---
GRECIA IS SLEEPING, NO SIGNS OF DISTRESS NOTED. CALL LIGHT IS IN REACH.
--- NOTE | 2020-06-08 06:27 | NUR ---
SHIFT SUMMARY: NO ACUTE CHANGES THIS SHIFT. SLEPT WELL T/O THE NIGHT. VS WNL, AFEBRILE. WAS PLEASANT AND COOPERATIVE WITH STAFF. CALL LIGHT REMAINED IN REACH.
--- NOTE | 2020-06-08 18:09 | NUR ---
SHIFT SUMMARY. PT DENIES N/V, SOB, AND PAIN. NO NEW CHANGES OR CONCERNS.
--- NOTE | 2020-06-09 06:42 | NUR ---
SHIFT SUMMARY A/O, ABLE TO MAKE NEEDS KNOWN. COOPERATIVE WITH CARE. CALLS AND ANSWERS QUESTIONS APPROPRIATELY. NO C/O PAIN/DISCOMFORT. VSS/AFEBRILE. NO ACUTE CHANGES NOTED OVERNIGHT. APPEARS TO NEED ENCOURAGEMENT TO UTILIZE URINAL OR POTENTIALLY BSC. MAYBE PLACING ON A BLADDER TRAINING PROGRAM. KNOWS HOW MANY TIMES HE GOES IN HIS BREIF. HOWEVER, CONTINUES TO WEAR ATTENDS AND REQUIRES FREQUENT CHANGES. BED REMAINS IN LOWEST POSITION. CALL LIGHT AND BELONGINGS WITHIN REACH. CONTINUE WITH CURRENT PLAN OF CARE. REPORT TO ONCOMING RN.
--- NOTE | 2020-06-09 15:52 | NUR ---
PATIENT A/OX4, UP WITH STAND LIFT TO CHAIR. ABLE TO ASSIST WITH REPOSITIONING. CONTINENT/INCONTIENT THIS SHIFT. CAN USE URINAL WITH ASSISTANCE. DRESSING CHANGED TO COCCYX WOUND AND PICS TAKEN AND PLACED ON CHART. NO ACUTE CHANGES THIS SHIFT. PATIENT CONTINUES TO AWAIT PLACEMENT.
--- NOTE | 2020-06-10 16:54 | NUR ---
NO ACUTE CHANGES THIS SHIFT. PATIENT IS AWAITING PLACEMENT. VSS, ON RA. COOPERATIVE WITH CARE AND CALLS APPROPRIATELY. DRESSING TO COCCYX WOUND REMAINS C/D/I. INCONTINENT OF URINE/STOOL, ROSY ATTENDS. ABLE TO REPOSITION SELF IN BED. UP TO CHAIR WITH TRANSFER BOARD OR SIT/STAND LIFT.
--- NOTE | 2020-06-11 16:23 | NUR ---
NO ACUTE CHANGES THIS SHIFT. VSS, ON RA. UP TO CHAIR FOR MOST OF THE AFTERNOON. TOLERATING DIET. INCONTIENT OF URINE AND STOOL. DRESSING TO COCCYX REMAINS C/D/I. PATIENT ABLE TO MAKE NEEDS KNOWN. PLEASANT AND COOPERATIVE WITH CARE.
--- NOTE | 2020-06-12 07:45 | NUR ---
LATE ENTRY FOR 06/10/20 SHIFT SUMMARY: A&OX4, ABLE TO DANGLE INDEPENDANTLY ON EDGE OF BED. INC OF B&B. UNSTABLE WOUND ON COCCYX IS COVERED WITH MEPILEX, CHANGED THIS SHIFT. VSS, NO REPORTS OF PAIN.
--- NOTE | 2020-06-12 07:48 | NUR ---
LATE ENTRY FOR 06/11/20 0600: SHIFT SUMMARY: NO ACUTE CHANGES, VSS. ABLE TO MAKE NEEDS KNOWN. AWAITING PLACEMENT.
--- NOTE | 2020-06-12 07:49 | NUR ---
SHIFT SUMMARY: NO ACUTE CHANGES, VSS, ABLE TO MAKE NEEDS KNOWN.
--- NOTE | 2020-06-13 07:09 | NUR ---
06/13/20 0500 PT SLEPT WELL. VITALS STABLE. RT SIDE DEFICIT. PT WAS IRRITABLE AT BEGINNING OF SHIFT BUT MORE RELAXED THROUGH THE NIGHT. INCONTINENT OF URINE AND ATTENDS CHANGED PRN. REPOSITIONED ALLOWED BY PT.
--- NOTE | 2020-06-14 07:54 | NUR ---
06/14/20 0520 PT SLEPT ON AND OFF. CALLS STAFF WHEN INCONTINENT OF URINE IN ATTENDS AND OFTER SOAKS THROUGH TO BED LINENS. VITALS STABLE. HAS A ROUTINE FOR ALL HIS CARE AND INSISTS ON CARE BEING GIVEN THE WAY HE WANTS IT.
--- NOTE | 2020-06-14 17:14 | NUR ---
AOX4 AND COOPERATIVE OF CARE. PT HAS HAD NO REAL CHANGES. USES CALL LIGHT APPROPRIATELY AND TRYS TO HELP WITH ANY CHANGES OR GETTING PULLED UP IN BED. PT HAS CALL LIGHT WITHIN REACH WILL CONTINUE TO MONITOR.
--- NOTE | 2020-06-15 05:15 | NUR ---
SHIFT SUMMARY NO ACUTE CHANGES THIS EVENING. CONTINUES TO HAVE R SIDED DEFECITS, HOWEVER MOVEMENT OF EXTREMETIES HAS IMPROVED SINCE ADMISSION. PT REMAINED IN BED THIS EVENING. SLEPT OFF AND ON THROUGHOUT THE NIGHT. INCONTINENT. CALLED APPROPRIATELY. NO COMPLAINTS OF PAIN. PT HAD AN UNEVENTFUL NIGHT. VITAL SIGNS STABLE. WILL CONTINUE TO MONITOR AND REPORT TO DAY RN.
--- NOTE | 2020-06-15 17:01 | NUR ---
SHIFT SUMMARY PATIENT DENIES PAIN, NAUSEA, AND SHORTNESS OF BREATH. PATIENT WORKED WITH PT AND OT. PATIENT UP STAND PIVOT OR SIT TO STAND LIFT. RED SCHAFFER INTERVIEWED PATIENT FOR PLACEMENT TODAY. PATIENT PLEASANT AND COOPERATIVE WITH CARE.
--- NOTE | 2020-06-16 05:41 | NUR ---
SHIFT SUMMARY PT SLEPT THROUGHOUT THE NIGHT. INCONTINENT. CALLED APPROPRIATELY TO BE CHANGED AND TO LET NEEDS BE KNOWN. PLEASANT AND COOPERATIVE. REMAINS WITH R SIDED WEAKNESS R/T CVA. SWALLOWED PILLS WELL WITH APPLESAUCE. DENIES ANY PAIN. VSS. PT CONTINUES TO AWAIT PLACEMENT. VITAL SIGNS STABLE. WILL CONTINUE TO MONITOR AND REPORT TO DAY RN.
--- NOTE | 2020-06-16 16:54 | NUR ---
SHIFT SUMMARY PATIENT DENIES PAIN, NAUSEA, AND SHORTNESS OF BREATH. PATIENT WORKED WITH PT AND OT. PATIENT UP IN WHEELCHAIR MOST OF SHIFT. TRANSFERING STAND PIVOT WITH LILY WALKER AND GAITBELT. MOTHER VISTED IN AFTERNOON. PENDING PLACEMENT.
--- NOTE | 2020-06-17 05:06 | NUR ---
SHIFT SUMMARY ADMITTED FOR CVA - RT SIDED DEFICITS. FULL CODE. PLAN IS FOR PLACEMENT. PT IS INCONTINENT. HE IS A STAND PIVOT TO CHAIR. WHEELCHAIR AT BASELINE. MEDS WHOLE IN DouguoHyperpia. PHYSICAL AND OT ARE WORKING WITH THIS PT. HE IS ABLE TO MAKE HIS NEEDS KNOWN. A&O X4. RA.
--- NOTE | 2020-06-17 15:31 | NUR ---
I AM RESUMING CARE FOR THIS PT. REPORT TAKEN FROM ALYCE MARRUFO.
--- NOTE | 2020-06-17 18:38 | NUR ---
SHIFT SUMMARY NO ACUTE CHANGES SINCE PT UNDER MY CARE. FAMILY WAS @ BEDSIDE VISITING MOST OF TIME. PT TRANSFERRED FROM CHAIR BACK TO BED. ATTENDS AND MEPILEX CHANGED. PT HAD A BM. URINAL PLACED AT BEDSIDE TO ENCOURAGE USE. PT IS CURRENTLY LYING IN BED AND APPEARS TO BE IN NO DISTRESS. CALL LIGHT IS WITHIN REACH.
--- NOTE | 2020-06-18 04:35 | NUR ---
SHIFT SUMMARY ADMITTED FOR CVA - RT SIDED DEFICITS. FULL CODE. PLAN IS FOR PLACEMENT. STAND/PIVOT TO WHEELCHAIR. SOFT BITE SIZE DIET. MEDS W/APPLESAUCE. INCONTINENT OF URINE AND BM. PHYSICAL & OCCUPATIONAL THERAPY ORDERED. HE IS A&O X4. NO NEW CONCERNS THIS SHIFT.
--- NOTE | 2020-06-18 19:15 | NUR ---
ASSUMED CARE RECEIVED REPORT FROM ALYCE ALEXANDER. PT ASLEEP, IN NO ACUTE DISTRESS; RESPS E/U. NO ACUTE NEEDS ASSESSED AT THIS TIME. CALL LIGHT, POSSESSIONS IN REACH, BED IN LOW POSITION. CONTINUE TO MONITOR.
--- NOTE | 2020-06-18 19:45 | NUR ---
SHIFT SUMMARY: NO ACUTE EVENTS TO REPORT THIS SHIFT. PT A&O; CALM AND COOPERATIVE WITH CARE. NO C/O PAIN/NAUSEA THIS SHIFT. HX CVA c R SIDE WEAKNESS; STAND-PIVOT TO CHAIR/WHEELCHAIR. ASPIRATION PRECAUTIONS; PO MEDS WHOLE IN APPLESAUCE. AWAITING PLACEMENT. REPROT GIVEN TO ONCOMING RN.
--- NOTE | 2020-06-19 04:34 | NUR ---
COMPUTING MACHINE OPERATOR SUMMARY PT ASLEEP, IN NO ACUTE DISTRESS. NO ACUTE CHANGES IN CONDITION. PLEASANT AND COOPERATIVE WITH CARES, CALLED APPROPRIATELY. VS REVIEWED, WNL. CONTINUES TO AWAIT PLACEMENT. NO ACUTE NEEDS ASSESSED AT THIS TIME, CALL LIGHT AND POSSESSIONS IN REACH, BED IN LOW POSITION. WILL CONTINUE TO PROVIDE CARE, REPORT OFF TO DAY RN.
--- NOTE | 2020-06-19 17:22 | NUR ---
SHIFT SUMMARY- PT IS A/O, PLESANT AND COOPERATVIE WITH CARE. HE IS EATING AND DRINKING WELL. HE IS ABLE TO REPOSITION HIMSELF AND IS SITTING AT THE EDGE OF THE BED FOR MEALS. HE IS INC AND IS VOIDING WELL. HE IS CURRENTLY IN BED IN THE LOW POSITION WITH HIS CALL LIGHT WITIN REACH.
--- NOTE | 2020-06-20 00:29 | NUR ---
06/19/20 2145 PT SITTING ON EDGE OF BED, REPORTS BACK AND L SIDE PAIN OF 3/10, DECLINES PAIN MEDS AT THIS TIME. NO OTHER APPARENT SIGNS OF DISTRESS. CALL LIGHT IS IN REACH.
--- NOTE | 2020-06-20 00:35 | NUR ---
PT LYING IN BED, EYES CLOSED, APPEARS TO BE RESTING. BREATHING IS EVEN, UNLABORED. NO APPARENT SIGNS OF DISTRESS. CALL LIGHT IS IN REACH.
--- NOTE | 2020-06-20 04:01 | NUR ---
0200 PT LYING IN BED, EYES CLOSED, APPEARS TO BE RESTING. BREATHING IS EVEN, UNLABORED. NO APPARENT SIGNS OF DISTRESS. CALL LIGHT IS IN REACH.
--- NOTE | 2020-06-20 04:02 | NUR ---
PT SITTING UP IN BED, AWAKE, WATCHING TV. DENIES NEED FOR ANYTHING ST THIS TIME. NO APPARENT SIGNS OF DISTRESS. CALL LIGHT IS IN REACH.
--- NOTE | 2020-06-20 04:03 | NUR ---
PT IS AAA X 4, ON RA. PT REPORTED BACK PAIN BUT DECLINED MEDS FOR IT.
--- NOTE | 2020-06-20 06:13 | NUR ---
PT LYING IN BED, EYES CLOSED, APPEARS TO BE RESTING. BREATHING IS EVEN, UNLABORED. NO APPARENT SIGNS OF DISTRESS. CALL LIGHT IS IN REACH. NO OTHER CHANGES THIS SHIFT.
--- NOTE | 2020-06-20 17:29 | NUR ---
SHIFT SUMMARY NO ACUTE CHANGES, A&Ox4, CALM AND COOPERATIVE c CARE. PT CONTINUES TO HAVE R SIDED DEFICITS AND INCONT OF URINE AND STOOL. PT HAS A GOOD APPETITIE. CALLS APPROPRAITELY. MEPILEX ON COCCYX WAS CHANGED THIS EVENING. PT IS LIKELY TO DISCHARGE TOMORROW TO [facility]. PT IS CURRENTLY SITTING UP IN BED EATING DINNER. CALL LIGHT IS WITHIN REACH.
--- NOTE | 2020-06-20 22:26 | NUR ---
ASSUMPTION OF CARE. PATIENT SLEEPING BUT AWAKENED EASILY. STATES HE HAS BEEN REAL TIRED TODAY. HE WANTST TO GET SOME REST BEFORE HE MOVES TOMORROW. HE IS HAPPY BUT SAD ALL AT ONCE. HE GOT USE TO THE STAFF HERE AND WILL MISS US ALL. ADMINISTERED MEDS AND GAVE HIM A GLASS OF WATER. CALL LIGHT IS IN REACH.
--- NOTE | 2020-06-21 05:41 | NUR ---
SHIFT SUMMARY: AOX3, PLEASANT AND COOPERATIVE. TIRED SLEPT T/O NIGHT. NO ACUTE CHANGES, CVA WITH RIGHT SIDED DEFICIT AND INCONTIENCE. GOOD APPETITE. NO PAIN OR DISCOMFORT. VS WNL, AFEBRILE. POSSIBLE DC TO [facility] TODAY. USES CALL LIGHT APPROPRIATLY.
--- NOTE | 2020-06-21 07:52 | NUR ---
ASSUMED CARE OF PT- BEDSIDE REPORT COMPLETD WITH NIGHT RN. PT ALERT AND ORIENTED, MOVES INDEPENDENTLY IN THE BED, PARTICIPATED IN REPORT. IN BED CALL LIGHT IN REACH, BED IN LOW POSSITION NO S&S OF DISTRESS AT THIS TIME. PT DOES REQUEST A BEDBATH TODAY PRIOR TO HIS DISCHAGRE PLANNED TO [facility] LATER TODAY. NO TELE NO IV ACCESS.
[2020-06-21 10:53] LABS: Influenza A, PCR NEGATIVE (NEGATIVE); Influenza B, PCR NEGATIVE (NEGATIVE); Resp Syncytial Virus, PCR NEGATIVE (NEGATIVE); SARS-Cov-2 (COVID-19) PCR, MMC NEGATIVE (NEGATIVE)
--- NOTE | 2020-06-21 11:39 | NUR ---
DISCHARGE NOTE- PT RECIEVED A FULL BEDBATH. MORNING MEDS RECIEVED, COVID TEST COMPLETED AND RESULTS WERE IN. PT WAS ASSISTED TO HIS WC AND WAS TAKEN VIA TRANSPORT TO BE ADMITTED TO [facility]. NO IV PRESENT AT THE TIME OF DISCHARGE. PT IN GOOD SPIRITS UPON LEAVING STATING HE IS GOING TO [facility] ALL THE STAFF HERE, HE STATED HE APPRECIATED ALL THE CARE HE RECIEVED DURING HIS STAY.
== END 2020-06-21 11:10 | disposition home or self-care (01) | DRG 56 ==
LOC: ER 11:42 → MEDS 15:40 → ICUW 05-05 22:50 → MEDS 05-06 17:19
PROVIDERS: Emergency Medicine; Internal Medicine; Nurse Practitioner Acute Care; Student in an Organized Health Care Education/Training Program; ADMIT Internal Medicine
DX: I69.351 Hemiplegia and hemiparesis following cerebral infarction affecting right dominant side (principal); J96.01 Acute respiratory failure with hypoxia; N17.0 Acute kidney failure with tubular necrosis; G92 Toxic encephalopathy; E87.0 Hyperosmolality and hypernatremia; C64.9 Malignant neoplasm of unspecified kidney, except renal pelvis; N17.9 Acute kidney failure, unspecified; C78.00 Secondary malignant neoplasm of unspecified lung; R33.9 Retention of urine, unspecified; I10 Essential (primary) hypertension; E83.39 Other disorders of phosphorus metabolism; F15.10 Other stimulant abuse, uncomplicated; F10.10 Alcohol abuse, uncomplicated; Z96.641 Presence of right artificial hip joint; Z79.899 Other long term (current) drug therapy; Z79.82 Long term (current) use of aspirin; Z74.01 Bed confinement status; I69.328 Other speech and language deficits following cerebral infarction
CPT/HCPCS: 0241U; 36415; 70450; 70496; 70498; 70551; 76770; 80048; 80053; 80069; 81001; 82803; 83735; 84484; 85025; 85027; 92526; 92610; 93005; 93010; 93306; 94760; 94762; 96361; 96374; 96375; 97110; 97112; 97140; 97162; 97164; 97166; 97530; 97535; 99284; 99285-25; A9270; J0360; J1644; J7030; J7060; Q9967

== ENCOUNTER 2020-07-03 07:01 | Inpatient (IN) | payer OTHER ==
[~2020-07-03] VITALS: Ht 175.3 cm; Wt 101.8 kg
[~2020-07-03 07:01] MED LIST changes: +POTCHL10ER PO; +PRAV20 PO; +Percocet 5-3251 EACH PO
[2020-07-03 07:55] LABS: BASOPHILS ABSOLUTE AUTO 0.07 K/mm3 (0.00-0.23); BASOPHILS PERCENT AUTO 0 % (0-2); EOSINOPHILS PERCENT AUTO 0 % (0-6); Hematocrit 29.5 % (37.0-53.0); Hemoglobin 9.3 g/dL (13.5-17.5); IMMATURE GRAN ABSOLUTE AUTO 0.19 K/mm3 (0.00-0.10); IMMATURE GRAN PERCENT AUTO 1 % (0-1); LYMPHOCYTES ABSOLUTE AUTO 0.59 K/mm3 (0.84-5.20); LYMPHOCYTES PERCENT AUTO 3 % (21-46); MONOCYTES ABSOLUTE AUTO 0.49 K/mm3 (0.16-1.47); MONOCYTES PERCENT AUTO 2 % (4-13); Mean Corpuscular HGB 29.2 pg (26.0-34.0); Mean Corpuscular HGB Conc 31.5 g/dL (31.5-36.5); Mean Corpuscular Volume 93 fL (80-100); Mean Platelet Volume 11.4 fL (9.1-12.4); NEUTROPHILS ABSOLUTE AUTO 19.65 K/mm3 (1.96-9.15); NEUTROPHILS PERCENT AUTO 94 % (41-73); Platelet Count 444 K/mm3 (150-400); RDW Coefficient Variation 15.3 % (11.7-14.2); RDW Standard Deviation 51.9 fL (35.1-46.3); Red Blood Cell Count 3.18 M/mm3 (4.30-5.90); White Blood Cell Count 20.99 K/mm3 (4.00-11.30)
[2020-07-03 08:03] LABS: Source, Urine Catheter
[2020-07-03 08:05] LABS: Bun/Creatinine Ratio 8.6 (12.0-20.0); Calcium, Blood 8.8 mg/dL (8.5-10.1); Creatinine, Blood 2.69 mg/dL (0.60-1.20); Potassium, Blood 4.7 mmol/L (3.5-5.5)
[2020-07-03 08:09] LABS: U Amphetamine Screen Not Detected; U Barbituate Screen Not Detected; U Benzodiazapine Screen Not Detected; U Buprenorphine Screen Not Detected; U Cannabinoids Screen Not Detected; U Cocaine Screen Not Detected; U Methadone Screen Not Detected; U Methamphetamine Screen Not Detected; U Opiates Screen Not Detected; U Oxycodone Screen Not Detected; U Phencyclidine Screen Not Detected; U Propoxyphene Screen Not Detected
[2020-07-03 08:23] LABS: Appearance, Urine Cloudy (Clear); Bilirubin, Urine Neg (Neg); Blood, Urine 5+ (Neg); Color, Urine Yellow (P-Yellow); Glucose Qualitative, Urine Neg (Neg); Ketones, Urine 1+ (Neg); Leukocyte Esterase, Urine 2+ (Neg); Nitrite, Urine Neg (Neg); Protein, Urine 4+ (Neg); Urobilinogen, Urine 1+ (Normal)
[2020-07-03 08:28] LABS: Red Blood Cells, Urine TNTC /hpf (0-2); White Blood Cells, Urine TNTC /hpf (0-5)
[2020-07-03 08:30] LABS: Bacteria Mod /hpf; Squamous Epithelial Cells Not Seen /hpf (Few)
[2020-07-03] MEDS ORDERED: CLON.1 PO (12:23)
[2020-07-03] MEDS ORDERED: Metoprolol Tar100 MG PO (12:23)
[2020-07-03] MEDS ORDERED: Aspir 8181 MG PO (12:23)
[2020-07-03] MEDS ORDERED: ATOR40TA PO (12:24)
[2020-07-03] MEDS ORDERED: DOCU100 PO (12:24)
[2020-07-03] MEDS ORDERED: FERSU300 PO (12:24)
[2020-07-03] MEDS ORDERED: Vitamin D2000 UNIT PO (12:24)
[2020-07-03] MEDS ORDERED: NIFE60ER PO (12:25)
[2020-07-03] MEDS ORDERED: CLOP75 PO (12:25)
[2020-07-03] MEDS ORDERED: TAMS.4ER PO (12:25)
[2020-07-03] MEDS ORDERED: VOTRIENT200 MG PO (12:26)
[2020-07-03] MEDS ORDERED: MIRALAX17 GM PO (12:27)
[2020-07-03] MEDS ORDERED: Acetaminophen325 M1 PO (12:28)
[2020-07-03] MEDS ORDERED: DULCOLAX400 MG/5 M PO (12:29)
[2020-07-03 15:28] LABS: Hemoglobin 8.8 g/dL (13.5-17.5)
--- NOTE | 2020-07-03 17:59 | NUR ---
SUMMARY PT RESTING QUIETLY IN BED, PT ADMITTED FROM THE ER FOR UTI/SEPSIS, PT IS ALERT AND ORIENTED, HISTORY OF A CVA WITH R SIDE DEFECIT, ABLE TO ASSIST WITH TURNS AND REPOSITIONING, CATHETER IN PLACE DRAINING BURGUNDY COLORED URINE, NO CLOTS SEEN, MANUAL IRRIGATION DONE, PT DANIELLE WELL, PT DENIES ANY PAIN OR SOB, FAMILY IN TO VISIT, NO ACUTE CHANGES, WILL CONT TO MONITOR
[2020-07-03 20:58] LABS: Hematocrit 22.2 % (37.0-53.0); Hemoglobin 7.1 g/dL (13.5-17.5)
--- NOTE | 2020-07-03 22:32 | NUR ---
DROP IN HGB PTS 2100 HGB CAME BACK AT 7.1 WHICH IS DOWN FROM HIS 1500 HGB OF 8.8. PT HAS ACTIVE BLEED IN KIDNEY WHICH IS BEING MONITORED. DISCUSSED THESE RESULTS WITH HARD ROCK MINER BLASTINGALYCE Rogers AND IT WAS DECIDED TO NOT CALL THE PROVIDER SINCE THE PT IS NOT SYMPTOMATIC AND HIS BP IS STABLE. I HAVE ASKED LABS TO MAKE THIS PT PRIORITY FOR AM LAB ROTATION, WCTM.
[2020-07-04 03:35] LABS: Hematocrit 22.6 % (37.0-53.0); Hemoglobin 7.3 g/dL (13.5-17.5); Mean Corpuscular HGB 29.3 pg (26.0-34.0); Mean Corpuscular HGB Conc 32.3 g/dL (31.5-36.5); Mean Corpuscular Volume 91 fL (80-100); Mean Platelet Volume 11.2 fL (9.1-12.4); Platelet Count 271 K/mm3 (150-400); RDW Coefficient Variation 15.4 % (11.7-14.2); RDW Standard Deviation 51.2 fL (35.1-46.3); Red Blood Cell Count 2.49 M/mm3 (4.30-5.90); White Blood Cell Count 18.89 K/mm3 (4.00-11.30)
[2020-07-04 03:49] LABS: International Normalized Ratio 1.18; Prothrombin Time Results 12.5 Sec (9.7-11.5)
[2020-07-04 03:53] LABS: BAND PERCENT MAN 31 % (0-8); BASOPHILS ABSOLUTE MAN 0.18 K/mm3 (0.00-0.23); BASOPHILS PERCENT MAN 1 % (0-2); EOSINOPHILS PERCENT MAN 0 % (0-6); LYMPHOCYTES ABSOLUTE MAN 0.56 K/mm3 (0.84-5.20); LYMPHOCYTES PERCENT MAN 3 % (21-46); MONOCYTES ABSOLUTE MAN 0.18 K/mm3 (0.16-1.47); MONOCYTES PERCENT MAN 1 % (4-13); NEUTROPHILS ABSOLUTE MAN 17.94 K/mm3 (1.96-9.15); SEG NEUTROPHILS PERCENT MAN 64 % (41-73); TOTAL CELLS COUNTED 100
[2020-07-04 03:55] LABS: Albumin, Blood 1.4 g/dL (3.4-5.0); Albumin/Globulin Ratio 0.3 (0.8-1.8); Bilirubin, Total 0.8 mg/dL (0.1-1.0); Bun/Creatinine Ratio 9.1 (12.0-20.0); Calcium, Blood 8.1 mg/dL (8.5-10.1); Creatinine, Blood 3.4 mg/dL (0.60-1.20); Globulin, Blood 4.9 g/dL (2.2-4.0); Magnesium, Blood 1.6 mg/dL (1.6-2.4); Potassium, Blood 4.5 mmol/L (3.5-5.5); Total Protein, Blood 6.3 g/dL (6.4-8.2)
--- NOTE | 2020-07-04 04:08 | NUR ---
STRUCTURES TECHNICIAN SUMMARY THE PT'S CATHETER HAS BEEN IRRIGATED Q2H W NO EVIDENTS OF CLOTS AND THE PT HAS AVERAGED 100ML OF DARK BLOOD COLORED URINE PER HOUR. THE PT HAD SOFT BP AT START OF THE SHIFT 90'S OVER 60'S SO BP MEDICATION WAS HELD HOWEVER THE PT HAS REMAINED TACHY IN THE 100'S THROUGHOUT THE SHIFT. PT GIVEN TYLENOL ONCE FOR FEVER THIS SHIFT. PT'S HGB REMAINED STABLE THIS SHIFT DESPITE CURRENT BLEED. O2 SATS >92% ON RM AIR. PT HAS DENIED ANY PAIN OR NAUSEA THIS SHIFT. URINE CULTURE CAME BACK POSITIVE FOR GRAM NEG BACILLI SO PHARMACY WAS CONTACTED TO CONFIRM THAT ROCEPHIN WOULD COVER THIS. WCTM.
--- NOTE | 2020-07-04 10:44 | NUR ---
At beginning of shift, urine noted to be dark red, about 200 cc in the bag. Two hours later, there is no more drainage noted and no active drainage. Irrigated with 30 cc sterile water, and no return was noted. Bladder scan showed 299 cc liquid in bladder. Attends also noted to be stained with what appeared to be dark red urine. Noted also dark red thin liquid squirting out around the insertion site at the urethra. Villanueva was dc'd and replaced using aseptic technique with an 18fr three-way villanueva for continuous irrigation. Immediately, 275 dark red urine drained spontaneously and irrigation was connected and titrated until urine flow was light pink. Noted several very tiny red clots in the catheter tubing. Pt tolerated it well. Denied pain both before and after the procedure.
--- NOTE | 2020-07-04 12:04 | NUR ---
Urine drainage appears to be very pale pink. Irrigation is flowing at minimal amount.
--- NOTE | 2020-07-04 13:52 | NUR ---
Alerted by staff trainer that villanueva was again leaking around the insertion site. RN had attempted to irrigate manually without success. I attempted manual irrigation as well, with sterile piston syringe, but could not evacuate anything. Called Amanda Adler, surgical manager clinical coordinator for assistance. Manual irrigation again attempted, as well as deflation and repositioning of the balloon, twice. AFter this attempt, villanueva was noted to be draining, total of 500 cc returned. Irrigation was turned on, and pink urine was noted draining. Call to Dr. Rangel to request medication for bladder spasms, as Amanda thought that this might be the problem.
--- NOTE | 2020-07-04 14:45 | NUR ---
Gonsales catheter draining pink urine at this time. Pt has no c/o pain or discomfort. B & O suppository was given. Procardia held at this time, due to holding parameters of SBP less than 120 mmHg.
--- NOTE | 2020-07-04 15:17 | NUR ---
Gonsales continues to drain dark pink urine, actively draining when I assess it. Pt was assisted to reposition in the bed at his request. Right arm and right leg elevated on pillows for comfort and also to prevent pressure sores at vulnerable areas. Pt was incontinent of stool about 2 hours ago. Cortney care was given and linen change also done at that time.
--- NOTE | 2020-07-04 18:45 | NUR ---
Manual irrigation after bladder scan showed 400+cc ; then 400 cc liquid evacuated immediately. Pt had no complaints and tolerated the procedure very well.
--- NOTE | 2020-07-05 05:12 | NUR ---
SHIFT SUMMARY PT WAS PLEASENT AND COOPERATIVE WITH CARE, ALERT AND ORIENTED. CONTINUOUS BLADDER IRRIGATION T/O THE NIGHT WITH MINIMAL SMALL CLOTS FLUSHED OUT. IRRIGATION TITRATED TO LIGHT PINK COLOR IN MILLAN, ABOUT 750ML/HR. PT TOLERATED WELL. HAD NEGATIVE OUTPUT WITH SECOND BAG, BLADDER SPASM FELT WITH IRRIGATION, GAVE PRN BELLADONNA. VITALS STABLE T/O THE SHIFT. BP HYPOTENSIVE 92-117 SYSTOLIC. HR 110'S. O2 SATS >95% ON ROOM AIR. TEMP OF 99 TRENDING DOWN. PT HAD A RESTFUL NIGHT.
--- NOTE | 2020-07-05 07:29 | NUR ---
Bedside report received. Ki MEAD says that there were problems with the villanueva draining last night, and he made many attempts to trouble shoot it. Possibly due to spasms, so he gave the B&O suppository early this morning. It appears to be draining well at time of bedside report, with dark pink urine in the collection bag, and very pale pink in the tubing. Pt has edema this morning, Ki reports. Fever, heart rate, and blood pressure normalizing since last night 0. Pt has no complaints or specific requests at this time.
--- NOTE | 2020-07-05 08:00 | NUR ---
Unable to calculate urine output. Irrigation in progress, attends changed because it was saturated with urine, apparently leaked from around the urethral insertion site. Noted no active leaking at this time, and appears to be actively draining into the villanueva bag.
[2020-07-05 08:47] LABS: Hematocrit 21.8 % (37.0-53.0); Hemoglobin 6.7 g/dL (13.5-17.5); Mean Corpuscular HGB 28.3 pg (26.0-34.0); Mean Corpuscular HGB Conc 30.7 g/dL (31.5-36.5); Mean Corpuscular Volume 92 fL (80-100); Mean Platelet Volume 11.2 fL (9.1-12.4); Platelet Count 265 K/mm3 (150-400); RDW Standard Deviation 53.9 fL (35.1-46.3); Red Blood Cell Count 2.37 M/mm3 (4.30-5.90); White Blood Cell Count 13.89 K/mm3 (4.00-11.30)
[2020-07-05 09:08] LABS: Albumin, Blood 1.3 g/dL (3.4-5.0); Anion Gap 9 mmol/L (6-16); Blood Urea Nitrogen 40 mg/dL (8-24); Bun/Creatinine Ratio 9.7 (12.0-20.0); CO2, Blood 19 mmol/L (21-32); Calcium, Blood 8.2 mg/dL (8.5-10.1); Chloride, Blood 107 mmol/L (98-108); Creatinine, Blood 4.13 mg/dL (0.60-1.20); Glomerular Filtration Rate 16 (60-); Glucose, Blood 100 mg/dL (70-99); Magnesium, Blood 1.7 mg/dL (1.6-2.4); Phosphorus, Blood 4.1 mg/dL (2.5-4.9); Potassium, Blood 4.3 mmol/L (3.5-5.5); Sodium, Blood 135 mmol/L (136-145)
[2020-07-05 09:08] LABS: BAND PERCENT MAN 2 % (0-8); BASOPHILS PERCENT MAN 0 % (0-2); EOSINOPHILS PERCENT MAN 0 % (0-6); LYMPHOCYTES ABSOLUTE MAN 1.11 K/mm3 (0.84-5.20); LYMPHOCYTES PERCENT MAN 8 % (21-46); MONOCYTES ABSOLUTE MAN 0.41 K/mm3 (0.16-1.47); MONOCYTES PERCENT MAN 3 % (4-13); NEUTROPHILS ABSOLUTE MAN 12.36 K/mm3 (1.96-9.15); SEG NEUTROPHILS PERCENT MAN 87 % (41-73); TOTAL CELLS COUNTED 100
--- NOTE | 2020-07-05 09:41 | NUR ---
Dr. Rangel here, rounding on the patient. No new orders received. Reported issues with villanueva leaking, and inaccurate I & O, which she said is not a problem.
--- NOTE | 2020-07-05 13:15 | NUR ---
Gonsales catheter continues to drain vigorously, light pink in color in tubing and in collection bag. No leakage around the urethra, attends have been dry since this morning's initial change. Pt reports no discomfort/needs at this time. blood transfusion infusing.
--- NOTE | 2020-07-05 14:18 | NUR ---
Pt is tolerating blood transfusion well. NO s/s reaction, lung sounds are clear, vital signs are stable. IV site WNL. Urine collection tubing/bag remain light pink, actively draining from villanueva.
--- NOTE | 2020-07-05 18:26 | NUR ---
PT ARRIVED TO ROOM 306 BY BED AND SETTLED IN TO ROOM. MILLAN DRAINING TEA COLORED URINE.
[2020-07-06 04:59] LABS: Mean Corpuscular HGB 29.1 pg (26.0-34.0); Mean Corpuscular Volume 91 fL (80-100); Platelet Count 249 K/mm3 (150-400); RDW Coefficient Variation 16.5 % (11.7-14.2); RDW Standard Deviation 54.4 fL (35.1-46.3); Red Blood Cell Count 2.75 M/mm3 (4.30-5.90)
[2020-07-06 05:20] LABS: Albumin, Blood 1.2 g/dL (3.4-5.0); Anion Gap 9 mmol/L (6-16); Blood Urea Nitrogen 46 mg/dL (8-24); Bun/Creatinine Ratio 10.6 (12.0-20.0); CO2, Blood 18 mmol/L (21-32); Calcium, Blood 7.9 mg/dL (8.5-10.1); Chloride, Blood 108 mmol/L (98-108); Creatinine, Blood 4.35 mg/dL (0.60-1.20); Glomerular Filtration Rate 16 (60-); Glucose, Blood 68 mg/dL (70-99); Magnesium, Blood 1.9 mg/dL (1.6-2.4); Sodium, Blood 135 mmol/L (136-145)
[2020-07-06 05:24] LABS: BAND PERCENT MAN 7 % (0-8); BASOPHILS ABSOLUTE MAN 0.12 K/mm3 (0.00-0.23); BASOPHILS PERCENT MAN 1 % (0-2); EOSINOPHILS PERCENT MAN 0 % (0-6); LYMPHOCYTES ABSOLUTE MAN 0.48 K/mm3 (0.84-5.20); LYMPHOCYTES PERCENT MAN 4 % (21-46); MONOCYTES PERCENT MAN 5 % (4-13); NEUTROPHILS ABSOLUTE MAN 10.89 K/mm3 (1.96-9.15); SEG NEUTROPHILS PERCENT MAN 83 % (41-73); TOTAL CELLS COUNTED 100
--- NOTE | 2020-07-06 06:13 | NUR ---
SHIFT SUMMARY PATIENT ALERT AND ORIENTED. HAD NO COMPLAINTS OF PAIN OR SHORTNESS OF BREATH. CONTINUOUS BLADDER IRRIGATION RAN OVERNIGHT. MILLAN PATENT AND DRAINING. MILLAN CLOGGED UP ONCE AND REQUIRED TO BE MANUALLY FLUSHED. NO ISSUES SINCE. IV PATENT AND INFUSING. BED IN LOWEST POSITION WITH WHEELS LOCKED AND ALARM ON. CALL LIGHT WITHIN REACH. REPORT GIVEN TO ONCOMING RN.
--- NOTE | 2020-07-06 14:29 | NUR ---
Attempted a visit with pt this morning. Pt's affect was flat, as well as tone of voice. He did answer questions, but only with a "yes" or "No", or a shrug of his shoulders. He denies pain or SOB. He does state he's feeling "really tired" today. He states he has kids and grandkids, but states he doesn't remember how long it's been since he's seen them. However, When I talked to pt's Aunt Aggie, she reports pt's family just left to return to [place], and that her and her are both highly involved in [employer] are. She said there haven't been any recent updates on his cancer since his last hospitalization in april. I then spoke to Dr Coombs's payroll human resources assistant, and she was able to explain more indepth. Dr. Coombs's payroll human resources assistant states pt should have had a scan before now, as they will need to do this to see where pt's new baseline is, and to get a better idea of what kind of time this pt has left, will need an inpatient oncology referral. Per Dr. Rangel, pt's kidneys are in too poor of shape for contrast right now, and she will place the consult if the pt's kidney function improves, in 2 or so days. Will notify Aggie of this. Will notify his aunt ju
--- NOTE | 2020-07-06 18:45 | NUR ---
SHIFT SUMMARY PT IS AOX4. PT MEDICATED WITH URINARY ANTISPASMOTIC X1 PER EMAR. PT DENIES N/V, SOB. PT IS ON BEDREST. PT/OT SAW PT TODAY AND DID WELL. TELE RUNNING SINUS 90S TODAY. APPETITE AND INTAKE IS GOOD. THIS RN REMOVED PT'S 18FR MILLAN CATHETER AND REINSERTED A 22FR THREE WAY MILLAN CATHETER PER DOCUMENTATION DUE TO PT URETHRA LEAKING. THIS RN HAD TO MANUALLY IRRIGATE PT'S 18 FR CATHETER FREQUENTLY T/O SHIFT DUE TO CLOTS WHICH LIKELY CAUSED BLOCKAGE AND SUBSEQUENT CATHETER LEAKING. PT HAD DARK RED URINE OUTPUT UPON CATHETER INSERTION AND IT IS CURRENTLY RUNNING A LIGHT PINK COLOR. PT HAS GOOD URINE OUTPUT. PT'S UNCLE VISITED THIS JACK. PT IS CURRENTLY IN BED, CALL LIGHT IN REACH, LOW POSITION.
[2020-07-07 04:34] LABS: BASOPHILS ABSOLUTE AUTO 0.07 K/mm3 (0.00-0.23); BASOPHILS PERCENT AUTO 1 % (0-2); EOSINOPHILS ABSOLUTE AUTO 0.22 K/mm3 (0.00-0.68); EOSINOPHILS PERCENT AUTO 2 % (0-6); Hematocrit 24.1 % (37.0-53.0); Hemoglobin 7.6 g/dL (13.5-17.5); IMMATURE GRAN ABSOLUTE AUTO 0.21 K/mm3 (0.00-0.10); IMMATURE GRAN PERCENT AUTO 2 % (0-1); LYMPHOCYTES ABSOLUTE AUTO 1.13 K/mm3 (0.84-5.20); LYMPHOCYTES PERCENT AUTO 8 % (21-46); MONOCYTES ABSOLUTE AUTO 1.02 K/mm3 (0.16-1.47); MONOCYTES PERCENT AUTO 7 % (4-13); Mean Corpuscular HGB 28.7 pg (26.0-34.0); Mean Corpuscular HGB Conc 31.5 g/dL (31.5-36.5); Mean Corpuscular Volume 91 fL (80-100); Mean Platelet Volume 11.4 fL (9.1-12.4); NEUTROPHILS ABSOLUTE AUTO 11.06 K/mm3 (1.96-9.15); NEUTROPHILS PERCENT AUTO 81 % (41-73); Platelet Count 271 K/mm3 (150-400); RDW Coefficient Variation 16.6 % (11.7-14.2); Red Blood Cell Count 2.65 M/mm3 (4.30-5.90); White Blood Cell Count 13.71 K/mm3 (4.00-11.30)
[2020-07-07 04:55] LABS: Albumin, Blood 1.2 g/dL (3.4-5.0); Albumin/Globulin Ratio 0.2 (0.8-1.8); Bilirubin, Total 0.4 mg/dL (0.1-1.0); Bun/Creatinine Ratio 10.7 (12.0-20.0); Calcium, Blood 8.1 mg/dL (8.5-10.1); Creatinine, Blood 4.75 mg/dL (0.60-1.20); Globulin, Blood 4.9 g/dL (2.2-4.0); Magnesium, Blood 2.1 mg/dL (1.6-2.4); Potassium, Blood 4.9 mmol/L (3.5-5.5); Total Protein, Blood 6.1 g/dL (6.4-8.2)
--- NOTE | 2020-07-07 07:19 | NUR ---
SHIFT SUMMARY PATIENT ALERT AND ORIENTED. CONTINUOUS BLADDER IRRIGATION PRODUCING LIGHT PINK OUTPUT. MILLAN HAD NO ISSUES WITH CLOGGING UP OVERNIGHT. NO COMPLAINTS OF PAIN OR SHORTNESS OF BREATH. PATIENT SLEPT WELL OVERNIGHT. IV PATENT AND INFUSING. BED IN LOWEST POSITION WITH WHEELS LOCKED AND ALARM ON. CALL LIGHT WITHIN REACH. REPORT GIVEN TO ONCOMING RN.
--- NOTE | 2020-07-08 03:25 | NUR ---
SHIFT SUMMARY: VSS. TEMP 100.3-100.5. ORAL TEMP 99.8. AAOX4. COMMUNICATES NEEDS. DENIES PAIN. BLADDER IRRIGATION PERFORMED X 2 IN ADDITION TO CONTINUOUS BLADDER IRRIGATION. URINE IS PINK TO VERY LIGHT PINK WITH SMALL SPECKS OF BLOOD CLOTS. PT REMAINS IN BED. TAKING PO FLUIDS WELL. MAINTENANCE IV FLUIDS INFUSING PER ORDERS. NO ACUTE OVERNIGHT EVENTS. WCTM.
[2020-07-08 04:43] LABS: Hematocrit 25.4 % (37.0-53.0); Mean Corpuscular HGB 28.9 pg (26.0-34.0); Mean Corpuscular HGB Conc 31.5 g/dL (31.5-36.5); Mean Corpuscular Volume 92 fL (80-100); Mean Platelet Volume 10.9 fL (9.1-12.4); Platelet Count 303 K/mm3 (150-400); RDW Coefficient Variation 16.8 % (11.7-14.2); Red Blood Cell Count 2.77 M/mm3 (4.30-5.90); White Blood Cell Count 14.56 K/mm3 (4.00-11.30)
[2020-07-08 05:23] LABS: Albumin, Blood 1.2 g/dL (3.4-5.0); Albumin/Globulin Ratio 0.2 (0.8-1.8); Bilirubin, Total 0.5 mg/dL (0.1-1.0); Bun/Creatinine Ratio 11.3 (12.0-20.0); Calcium, Blood 7.8 mg/dL (8.5-10.1); Creatinine, Blood 4.96 mg/dL (0.60-1.20); Globulin, Blood 5.1 g/dL (2.2-4.0); Percent Saturation 33.3 % (20.0-50.0); Potassium, Blood 4.7 mmol/L (3.5-5.5); Total Protein, Blood 6.3 g/dL (6.4-8.2)
[2020-07-08 05:31] LABS: BAND PERCENT MAN 8 % (0-8); BASOPHILS PERCENT MAN 0 % (0-2); EOSINOPHILS ABSOLUTE MAN 0.29 K/mm3 (0.00-0.68); EOSINOPHILS PERCENT MAN 2 % (0-6); LYMPHOCYTES ABSOLUTE MAN 1.31 K/mm3 (0.84-5.20); LYMPHOCYTES PERCENT MAN 9 % (21-46); MONOCYTES ABSOLUTE MAN 0.43 K/mm3 (0.16-1.47); MONOCYTES PERCENT MAN 3 % (4-13); NEUTROPHILS ABSOLUTE MAN 12.52 K/mm3 (1.96-9.15); SEG NEUTROPHILS PERCENT MAN 78 % (41-73); TOTAL CELLS COUNTED 100
--- NOTE | 2020-07-08 16:40 | NUR ---
SHIFT SUMMARY PT AOX4; CALLS APPROPRIATELY. DEMANDING AT TIMES. PT HAD A BLADDER IRRIGATION COMPLETED TODAY. MILLAN IS NOW DRAINING AND PATENT. PT NO C/O PAIN, SOB, OR CP. PT ON ROOM AIR. PT CALL LIGHT WITHIN REACH AND BED IS IN THE LOWEST POSITION.
[2020-07-09 05:05] LABS: Hematocrit 23.7 % (37.0-53.0); Hemoglobin 7.4 g/dL (13.5-17.5); Mean Corpuscular HGB 28.6 pg (26.0-34.0); Mean Corpuscular HGB Conc 31.2 g/dL (31.5-36.5); Mean Corpuscular Volume 92 fL (80-100); Platelet Count 336 K/mm3 (150-400); RDW Coefficient Variation 16.9 % (11.7-14.2); RDW Standard Deviation 56.8 fL (35.1-46.3); Red Blood Cell Count 2.59 M/mm3 (4.30-5.90); White Blood Cell Count 14.09 K/mm3 (4.00-11.30)
[2020-07-09 05:24] LABS: Albumin, Blood 1.2 g/dL (3.4-5.0); Anion Gap 9 mmol/L (6-16); Blood Urea Nitrogen 56 mg/dL (8-24); Bun/Creatinine Ratio 11.3 (12.0-20.0); CO2, Blood 19 mmol/L (21-32); Calcium, Blood 8.1 mg/dL (8.5-10.1); Chloride, Blood 109 mmol/L (98-108); Creatinine, Blood 4.95 mg/dL (0.60-1.20); Glomerular Filtration Rate 13 (60-); Glucose, Blood 88 mg/dL (70-99); Phosphorus, Blood 5.5 mg/dL (2.5-4.9); Potassium, Blood 4.6 mmol/L (3.5-5.5); Sodium, Blood 137 mmol/L (136-145)
--- NOTE | 2020-07-09 16:50 | NUR ---
SHIFT SUMMARY PT AOX4; CALLS APPROPRIATELY. PT IS ON URINE PROTEIN 24 HR COLLECTED STARTED AT 0900 AM TODAY WILL END 0900 AM TOMORROW. PT MILLAN DRAINING AND PATENT. DENIES ANY PAIN AND NO APPARENT DISTRESS. ENCOURAGED THE PT TO GET UP, HOWEVER HE SAID HE FEELS WEAK TODAY AND WANT TO TRY TO GET UP TOMORROW INSTEAD. BED IS IN THE LOWEST POSITION AND CALL LIGHT WITHIN REACH
[2020-07-10 04:27] LABS: Hematocrit 22.7 % (37.0-53.0); Hemoglobin 7.3 g/dL (13.5-17.5)
[2020-07-10 04:51] LABS: Alanine Aminotransfer (ALT/SGP 13 U/L (12-78); Albumin, Blood 1.2 g/dL (3.4-5.0); Albumin/Globulin Ratio 0.2 (0.8-1.8); Alk Phos 304 U/L (50-136); Anion Gap 9 mmol/L (6-16); Aspartate Aminotrans (AST/SGOT 21 U/L (12-37); Bilirubin, Direct 0.1 mg/dL (0.0-0.3); Bilirubin, Indirect 0.2 mg/dL (0.1-0.7); Bilirubin, Total 0.3 mg/dL (0.1-1.0); Blood Urea Nitrogen 56 mg/dL (8-24); Bun/Creatinine Ratio 11.3 (12.0-20.0); CO2, Blood 22 mmol/L (21-32); CPK Creatine Kinase 21 U/L (39-308); Calcium, Blood 7.8 mg/dL (8.5-10.1); Chloride, Blood 107 mmol/L (98-108); Creatinine, Blood 4.94 mg/dL (0.60-1.20); Globulin, Blood 4.8 g/dL (2.2-4.0); Glomerular Filtration Rate 13 (60-); Glucose, Blood 112 mg/dL (70-99); Magnesium, Blood 1.8 mg/dL (1.6-2.4); Phosphorus, Blood 5.2 mg/dL (2.5-4.9); Potassium, Blood 4.1 mmol/L (3.5-5.5); Sodium, Blood 138 mmol/L (136-145); Uric Acid, Blood 9.4 mg/dL (3.5-7.2)
--- NOTE | 2020-07-10 05:03 | NUR ---
SHIFT SUMMARY- ASSUMED CARE OF PT. @0030. PT. HAD NO ACUTE EVENTS DURING THE NIGHT. RESTED QUIETLY IN BED, NO APPARENT DISTRESS NOTED. A&O, DENIED C/O PAIN OR DISCOMFORT. 24HR URINE IN PLACE, ENDS @0900 TODAY. MILLAN CATHETER PATENT AND DRAINING, URINE IS CLEAR. VSS. CALL LIGHT WITHIN REACH AND SIDE RAILS UPX2. WILL CONT TO MONITOR.
--- NOTE | 2020-07-10 18:32 | NUR ---
Met with pt and his mom today after speaking to his Aunt Aggie by phone. At this time, there has been no further discussion of a PET scan with contrast yet, until kidneys can tolerated it. I introduced myself to pt's mom, and we chatted for a few minutes until pt stated, "Why are you here? What do you want? I'm fine, I'm very private and I have nothing to talk with you about". I thanked him for his time, but as I began to leave, he called me back into the room. He began to cry, and states he is sad he's spending his time in a hospital bed, not outside in the sun with his family. He mentioned a month old grandchild he hasn't met or held yet, and wonders if he ever will. He states he can see them over video but it isn't the same. Provided therapeutic listening, and asked pt if family was close by, but they are not, they're in [place]. We discussed options, but at this point, pt states he just wants to see how his kidneys do over the next few days before making any decision. He states I am welcome to come back and visit again tomorrow, and ended the visit.
--- NOTE | 2020-07-11 03:46 | NUR ---
OPERATIONS SUPERVISOR SUMMARY A/O X4, COOPERATIVE WITH CARE. DENIES PAIN OR SOB. NS RUNNING AT 50 ML/HR. VSS, NO ACUTE CHANGES AT THIS TIME. BED IN LOWEST POSITION WITH CALL LIGHT IN REACH. WILL CONTINUE TO MONITOR AND REPORT TO ONCOMING RN.
[2020-07-11 06:45] LABS: Albumin, Blood 1.3 g/dL (3.4-5.0); Anion Gap 8 mmol/L (6-16); Blood Urea Nitrogen 58 mg/dL (8-24); Bun/Creatinine Ratio 11.2 (12.0-20.0); CO2, Blood 24 mmol/L (21-32); Calcium, Blood 8.2 mg/dL (8.5-10.1); Chloride, Blood 107 mmol/L (98-108); Creatinine, Blood 5.19 mg/dL (0.60-1.20); Glomerular Filtration Rate 13 (60-); Glucose, Blood 87 mg/dL (70-99); Magnesium, Blood 1.8 mg/dL (1.6-2.4); Phosphorus, Blood 5.9 mg/dL (2.5-4.9); Potassium, Blood 4.1 mmol/L (3.5-5.5); Sodium, Blood 139 mmol/L (136-145)
--- NOTE | 2020-07-11 09:58 | NUR ---
PLAN OF CARE PER HOSPITALIST: POTENTIALLY ASSISTED LIVING WITH HOSPICE. TOUCHED BASE WITH PALLIATIVE AT THIS TIME, AP. PALLIATIVE WILL SEE PATIENT LATER TODAY TO DISCUSS.
[2020-07-12 05:01] LABS: Hematocrit 23.1 % (37.0-53.0); Hemoglobin 7.2 g/dL (13.5-17.5)
[2020-07-12 05:21] LABS: Albumin, Blood 1.3 g/dL (3.4-5.0); Anion Gap 10 mmol/L (6-16); Blood Urea Nitrogen 57 mg/dL (8-24); Bun/Creatinine Ratio 11.1 (12.0-20.0); CO2, Blood 23 mmol/L (21-32); Calcium, Blood 8.2 mg/dL (8.5-10.1); Chloride, Blood 107 mmol/L (98-108); Creatinine, Blood 5.14 mg/dL (0.60-1.20); Glomerular Filtration Rate 13 (60-); Glucose, Blood 87 mg/dL (70-99); Magnesium, Blood 1.9 mg/dL (1.6-2.4); Phosphorus, Blood 6.6 mg/dL (2.5-4.9); Potassium, Blood 4.1 mmol/L (3.5-5.5); Sodium, Blood 140 mmol/L (136-145)
--- NOTE | 2020-07-12 05:38 | NUR ---
FINANCE BUSINESS MANAGER SUMMARY A/OX4, PLEASANT AND COOPERATIVE WITH CARE. DENIES PAIN OR SOB. MILLAN PATENT AND DRAINING TO GRAVITY. VSS, NO ACUTE CHANGES AT THIS TIME. BED IN LOWEST POSITION WITH CALL LIGHT IN REACH. WILL CONTINUE TO MONITOR AND REPORT TO ONCOMING RN.
--- NOTE | 2020-07-12 12:54 | NUR ---
Met with pt yesterday afternoon, 07/11/20 at approximately 1400. Received a request to see pt to discuss hopice as an option. Placed call to Dr. Miramontes who states he is waiting to hear from urology consult to see if pt is a candidate for any further treatment. By yesterday afternoon, Dr. Miramontes had heard from urology consult and spoke with pt, who decided to move forward with treatment under vs going onto hospice care. Pt was short with this RN yesterday, states he has "nothing more" to say to me. Will remain available for pt request.
[2020-07-12 15:10] LABS: A/G RATIO 0.5 (0.7-1.7); ALBUMIN 1.6 g/dL (2.9-4.4); ALPHA-1-GLOBULIN 0.5 g/dL (0.0-0.4); ALPHA-2-GLOBULIN 0.8 g/dL (0.4-1.0); GAMMA GLOBULIN 1.4 g/dL (0.4-1.8); GLOBULIN, TOTAL 3.7 g/dL (2.2-3.9); IMMUNOGLOBULIN A, QN, SERUM 636 mg/dL (90-386); IMMUNOGLOBULIN G, QN, SERUM 1138 mg/dL (603-1613); IMMUNOGLOBULIN M, QN, SERUM 58 mg/dL (20-172); M-SPIKE Not Observed g/dL (Not Observed); PROTEIN, TOTAL, SERUM 5.3 g/dL (6.0-8.5)
--- NOTE | 2020-07-12 18:56 | NUR ---
SHIFT SUMMARY GRECIA DENIED PAIN THIS SHIFT. HIS MOM VISITED. CONSULT PUT IN FOR JOSE TO PUT IN HD CATH TOMORROW. MILLAN DRAINING WELL, CATHETER CARE DONE. TOOK PILLS WITH LOGAN PER PT REQUEST. CALL LIGHT IN REACH, TM
--- NOTE | 2020-07-13 00:21 | NUR ---
07/12/20 2104 PT LYING IN BED, DENIES ANY DISCOMFORT AT THIS TIME. NO APPARENT SIGNS OF DISTRESS. CALL LIGHT IS IN REACH.
--- NOTE | 2020-07-13 02:35 | NUR ---
07/12/20 2330 PT LYING IN BED, AWAKE, WATCHING TV. NO APPARENT SIGNS OF DISTRESS. CALL LIGHT IS IN REACH.
--- NOTE | 2020-07-13 02:36 | NUR ---
0200 PT LYING IN BED, EYES CLOSED, APPEARS TO BE RESTING. BREATHING IS EVEN, UNLABORED. NO APPARENT SIGNS OF DISTRESS. CALL LIGHT IS IN REACH.
[2020-07-13 05:03] LABS: Hematocrit 23.4 % (37.0-53.0); Hemoglobin 7.1 g/dL (13.5-17.5)
[2020-07-13 05:34] LABS: Albumin, Blood 1.4 g/dL (3.4-5.0); Anion Gap 10 mmol/L (6-16); Blood Urea Nitrogen 56 mg/dL (8-24); Bun/Creatinine Ratio 11.7 (12.0-20.0); CO2, Blood 22 mmol/L (21-32); Calcium, Blood 8.2 mg/dL (8.5-10.1); Chloride, Blood 109 mmol/L (98-108); Creatinine, Blood 4.79 mg/dL (0.60-1.20); Glomerular Filtration Rate 14 (60-); Glucose, Blood 83 mg/dL (70-99); Magnesium, Blood 1.8 mg/dL (1.6-2.4); Phosphorus, Blood 6.4 mg/dL (2.5-4.9); Potassium, Blood 4.1 mmol/L (3.5-5.5); Sodium, Blood 141 mmol/L (136-145)
--- NOTE | 2020-07-13 05:42 | NUR ---
PT LYING IN BED, AWAKE, WATCHING TV. NO APPARENT SIGNS OF DISTRESS. CALL LIGHT IS IN REACH. NO OTHER CHANGES THIS SHIFT.
--- NOTE | 2020-07-13 05:42 | NUR ---
0400 PT LYING IN BED, EYES CLOSED, APPEARS TO BE RESTING. WAKES EASILY TO VERBAL STIMULI. NO APPARENT SIGNS OF DISTRESS. CALL LIGHT IS IN REACH.
[2020-07-13 07:10] LABS: ANTIGLOMERULAR BM AB 6 units (0-20)
[2020-07-13 08:03] LABS: Creatinine, Blood 4.7 mg/dL (0.60-1.20)
[2020-07-13 13:11] LABS: ANA DIRECT Negative (Negative); ANTIMYELOPEROXIDASE (MPO) ABS <9.0 U/mL (0.0-9.0); ANTIPROTEINASE 3 (PR-3) ABS <3.5 U/mL (0.0-3.5); ATYPICAL PANCA <1:20 titer (Neg:<1:20); CYTOPLASMIC (C-ANCA) <1:20 titer (Neg:<1:20); PERINUCLEAR (P-ANCA) <1:20 titer (Neg:<1:20)
[2020-07-13 13:11] LABS: M-SPIKE, % Not Observed % (Not Observed); PROTEIN,TOTAL,URINE 128.1 mg/dL (Not Estab.)
--- NOTE | 2020-07-13 13:15 | NUR ---
Spiritual care visit conducted. Patient is lying in bed and alert. Patient tells me he is feeling better today and that he hopes for a continued movement forward. I ask patient about his prognosis and he states that he prefers not to discuss this becuase he is trying to "stay up" and that it is a challenge to do so these days. Patient says that he has good family support but he does miss them. He states that he has no episcopal beliefs and is coping by taking one day at a time. I normalize patient's struggle and provide therapeutic listening and a calming presence. Patient responds minimally to spiritual care interventions but I will continue to remain available to patient and family.
--- NOTE | 2020-07-13 19:37 | NUR ---
SHIFT SUMMARY- PT IS A/O, PLESANT AND COOPERATIVE. HE IS EATING AND DRINKING WELL. HE WORKED WITH PT TODAY AND SAT UP IN THE CHAIR FOR SEVERAL HOURS. HE DID NOT GO FOR A PERMACATH TODAY. HIS BED IS IN THE LOW POSITION AND CALL LIGHT IS WITIN REACH.
--- NOTE | 2020-07-14 04:52 | NUR ---
SHIFT SUMMARY NO ACUTE CHANGES TO REPORT THIS SHIFT. PT HAS RESTED MOST OF THE NIGHT, HE HAS DENIED NEEDS. PT MILLAN PATENT AND DRAINING WITHOUT ISSUE. PT HAS BEEN MOSTLY INDEPENDENT IF HE HAS EVERYTHING WITHIN REACH TO USE. VITALS STABLE. BED IN LOWEST POSITION, CALL LIGHT WITHIN REACH.
[2020-07-14 04:54] LABS: Hematocrit 22.3 % (37.0-53.0)
[2020-07-14 05:20] LABS: Albumin, Blood 1.4 g/dL (3.4-5.0); Anion Gap 10 mmol/L (6-16); Blood Urea Nitrogen 56 mg/dL (8-24); Bun/Creatinine Ratio 12.4 (12.0-20.0); CO2, Blood 21 mmol/L (21-32); Chloride, Blood 111 mmol/L (98-108); Creatinine, Blood 4.51 mg/dL (0.60-1.20); Glomerular Filtration Rate 15 (60-); Glucose, Blood 84 mg/dL (70-99); Magnesium, Blood 1.8 mg/dL (1.6-2.4); Potassium, Blood 4.1 mmol/L (3.5-5.5); Sodium, Blood 142 mmol/L (136-145)
--- NOTE | 2020-07-14 17:37 | NUR ---
SHIFT SUMMARY- PT IS A/O, PLESANT AND COOPERATIVE. HE IS EATING AND DRINKING WELL. HIS MILLAN IS PATIENT AND DRAINING. HIS MOM VISITED THIS AFTERNOON. HE IS RECIEVING IV FLUIDS. HIS BED IS IN THE LOW POSITION AND CALL LIGHT IS HARDEEP MAYEN.
[2020-07-15 04:52] LABS: Hematocrit 21.9 % (37.0-53.0); Hemoglobin 6.6 g/dL (13.5-17.5); Mean Corpuscular HGB 27.5 pg (26.0-34.0); Mean Corpuscular HGB Conc 30.1 g/dL (31.5-36.5); Mean Corpuscular Volume 91 fL (80-100); Mean Platelet Volume 10.6 fL (9.1-12.4); Platelet Count 407 K/mm3 (150-400); RDW Coefficient Variation 16.8 % (11.7-14.2); RDW Standard Deviation 57.1 fL (35.1-46.3); White Blood Cell Count 16.61 K/mm3 (4.00-11.30)
[2020-07-15 05:05] LABS: Albumin, Blood 1.4 g/dL (3.4-5.0); Anion Gap 9 mmol/L (6-16); Blood Urea Nitrogen 56 mg/dL (8-24); CO2, Blood 21 mmol/L (21-32); Chloride, Blood 111 mmol/L (98-108); Glomerular Filtration Rate 16 (60-); Glucose, Blood 91 mg/dL (70-99); Phosphorus, Blood 5.7 mg/dL (2.5-4.9); Sodium, Blood 141 mmol/L (136-145)
--- NOTE | 2020-07-15 06:21 | NUR ---
PT IS BEDBOUND FROM PAST CVA, MILLAN CATH. THIS AM HGB LAB 6.6, CALLED TO , 1 UNIT PRBC ORDERD FOR TODAY. PT PREFERS DOOR SHUT AT ALL TIMES. CONSULT BENJAMIN VASQUEZ TODAY CALLED TO ANSWERING SERVICE THIS SHIFT FOR RENAL CARCINOMA.
--- NOTE | 2020-07-15 17:58 | NUR ---
SHIFT SUMMARY PT A/O X3; PLEASANT AND COOPERATIVE WITH CARE. HX OF CVA AND RENAL CARCINOMA. PT RECEIVED 2 UNITS OF BLOOD TODAY, WHICH HE TOLERATED WELL. RECEIVED BUMEX IN BETWEEN TRANSFUSIONS. MILLAN PATENT AND DRAINING TO GRAVITY. VSS; RESTING COMFORTABLY IN BED WITH HIS CALL LIGHT IN REACH.
--- NOTE | 2020-07-16 04:16 | NUR ---
SUMMARY NO NEW ISSUES NOTED. PT HAS NOT SLEPT VERY MUCH. PT DENIES ANY PAIN OR SOB. PT CURRENTLY AWAKE WATCHING TV. CALL LIGHT IN REACH.
[2020-07-16 04:31] LABS: BASOPHILS ABSOLUTE AUTO 0.12 K/mm3 (0.00-0.23); BASOPHILS PERCENT AUTO 1 % (0-2); EOSINOPHILS ABSOLUTE AUTO 0.24 K/mm3 (0.00-0.68); EOSINOPHILS PERCENT AUTO 2 % (0-6); Hematocrit 27.4 % (37.0-53.0); Hemoglobin 8.6 g/dL (13.5-17.5); IMMATURE GRAN ABSOLUTE AUTO 0.37 K/mm3 (0.00-0.10); IMMATURE GRAN PERCENT AUTO 3 % (0-1); LYMPHOCYTES ABSOLUTE AUTO 1.82 K/mm3 (0.84-5.20); LYMPHOCYTES PERCENT AUTO 12 % (21-46); MONOCYTES ABSOLUTE AUTO 1.24 K/mm3 (0.16-1.47); MONOCYTES PERCENT AUTO 8 % (4-13); Mean Corpuscular HGB 28.3 pg (26.0-34.0); Mean Corpuscular HGB Conc 31.4 g/dL (31.5-36.5); Mean Corpuscular Volume 90 fL (80-100); Mean Platelet Volume 10.4 fL (9.1-12.4); NEUTROPHILS ABSOLUTE AUTO 11.26 K/mm3 (1.96-9.15); NEUTROPHILS PERCENT AUTO 75 % (41-73); Platelet Count 391 K/mm3 (150-400); RDW Coefficient Variation 16.9 % (11.7-14.2); RDW Standard Deviation 55.8 fL (35.1-46.3); Red Blood Cell Count 3.04 M/mm3 (4.30-5.90); White Blood Cell Count 15.05 K/mm3 (4.00-11.30)
[2020-07-16 04:54] LABS: Albumin, Blood 1.5 g/dL (3.4-5.0); Anion Gap 7 mmol/L (6-16); Blood Urea Nitrogen 53 mg/dL (8-24); Bun/Creatinine Ratio 12.5 (12.0-20.0); CO2, Blood 23 mmol/L (21-32); Calcium, Blood 8.3 mg/dL (8.5-10.1); Chloride, Blood 112 mmol/L (98-108); Creatinine, Blood 4.23 mg/dL (0.60-1.20); Glomerular Filtration Rate 16 (60-); Glucose, Blood 87 mg/dL (70-99); Magnesium, Blood 1.7 mg/dL (1.6-2.4); Phosphorus, Blood 6.1 mg/dL (2.5-4.9); Potassium, Blood 4.3 mmol/L (3.5-5.5); Sodium, Blood 142 mmol/L (136-145)
--- NOTE | 2020-07-16 18:27 | NUR ---
SHIFT SUMMARY: NO ACUTE EVENTS. DENIED PAIN. GOOD URINE OUTPUT. TOLERATING PO INTAKE, DRINKING LOTS OF WATER. REFUSING SCD'S. MOTHER VISITED THIS AFTERNOON. PLAN IS TO D/LORI TO [facility] TOMORROW.
[2020-07-17 04:41] LABS: Hematocrit 27.5 % (37.0-53.0); Hemoglobin 8.4 g/dL (13.5-17.5)
[2020-07-17 05:00] LABS: Albumin, Blood 1.6 g/dL (3.4-5.0); Anion Gap 8 mmol/L (6-16); Blood Urea Nitrogen 51 mg/dL (8-24); Bun/Creatinine Ratio 13.2 (12.0-20.0); CO2, Blood 21 mmol/L (21-32); Calcium, Blood 8.3 mg/dL (8.5-10.1); Chloride, Blood 111 mmol/L (98-108); Creatinine, Blood 3.87 mg/dL (0.60-1.20); Glomerular Filtration Rate 18 (60-); Glucose, Blood 82 mg/dL (70-99); Magnesium, Blood 1.7 mg/dL (1.6-2.4); Phosphorus, Blood 5.4 mg/dL (2.5-4.9); Potassium, Blood 4.3 mmol/L (3.5-5.5); Sodium, Blood 140 mmol/L (136-145)
--- NOTE | 2020-07-17 06:23 | NUR ---
49 year okd MAle with hx of strokes with rt hemiparesis & deficits related to residual effects of CVA. PT is able to communicate. He is wc bound & has own WC here. He has villanueva cath for hx of retention & renal cancer. Large amts of urine out via villanueva. Forgetful with flat affect. Low gradefever in '. Recieved 2 units of PRBS on 07/15/20 with HBG greater than 8.0[facility]
[2020-07-17] MEDS ORDERED: BUME2 PO (11:44)
[2020-07-17] MEDS ORDERED: SEVEC800 PO (11:44)
--- NOTE | 2020-07-17 14:50 | NUR ---
PATIENT D/C'D TO [facility] VIA WC TRANSPORT. PATIENT TRANSPORTED VIA HIS OWN W/C. BELONGS AND PAPERWORK GIVEN TO COLOR DEVELOPER. REPORT CALLED TO MARCELLUS, NURSE AT [facility]. HOME HEALTH TO F/U WITH PATIENT FOR EVALUATION. PATIENT SENT WITH MILLAN CATH. PATIENT DENIES ANY FURTHER QUESTIONS OR CONCERNS.
== END 2020-07-17 14:46 | disposition home health service (06) | DRG 698 ==
LOC: ER 07:01 → MEDS 12:30 → PCU 12:30 → MEDS 07-05 17:54 → ENPENDDIS 07-17 09:25 → MEDS 07-17 14:46
PROVIDERS: Emergency Medicine; Internal Medicine; Internal Medicine Nephrology; Nurse Practitioner Acute Care; ADMIT Hospitalist
DX: T83.511A Infection and inflammatory reaction due to indwelling urethral catheter, initial encounter (principal); A41.59 Other Gram-negative sepsis; R65.20 Severe sepsis without septic shock; N17.9 Acute kidney failure, unspecified; I69.351 Hemiplegia and hemiparesis following cerebral infarction affecting right dominant side; E87.2 Acidosis; C64.2 Malignant neoplasm of left kidney, except renal pelvis; C78.00 Secondary malignant neoplasm of unspecified lung; D62 Acute posthemorrhagic anemia; R39.198 Other difficulties with micturition; I69.398 Other sequelae of cerebral infarction; E66.9 Obesity, unspecified; Z68.39 Body mass index [BMI] 39.0-39.9, adult; Z79.82 Long term (current) use of aspirin; F15.21 Other stimulant dependence, in remission; Z79.02 Long term (current) use of antithrombotics/antiplatelets; I12.9 Hypertensive chronic kidney disease with stage 1 through stage 4 chronic kidney disease, or unspecified chronic kidney disease; R31.9 Hematuria, unspecified; E88.09 Other disorders of plasma-protein metabolism, not elsewhere classified; N13.9 Obstructive and reflux uropathy, unspecified; E83.39 Other disorders of phosphorus metabolism; N18.30 Chronic kidney disease, stage 3 unspecified; N40.0 Benign prostatic hyperplasia without lower urinary tract symptoms; D63.8 Anemia in other chronic diseases classified elsewhere
CPT/HCPCS: 36415; 36430; 51700; 51702; 74176; 76770; 80048; 80053; 80069; 81001; 81050; 82248; 82550; 82565; 82728; 82784; 83516; 83520; 83540; 83550; 83605; 83735; 84100; 84156; 84165; 84166; 84550; 85014; 85018; 85025; 85027; 85610; 86038; 86256; 86334; 86335; 86850; 86900; 86901; 86923; 87040; 87077; 87086; 87186; 93971; 96361; 96365-59; 97110; 97112; 97161; 97165; 97530; 97530-CQ; 97535; 99285-25; A9270; A9270-GY; J0696; J0881; J1940; J7030; J7070; J7120; P9016

== ENCOUNTER → 2020-12-02 | Outpatient (CLI) | payer OTHER ==
[~2020-12-02] MED LIST changes: +ATOR40TA PO; +Acetaminophen325 M1 PO; +Aspir 8181 MG PO; +BUME2 PO; +CLON.1 PO; +CLOP75 PO; +DULCOLAX400 MG/5 M PO; +FERSU300 PO; +MIRALAX17 GM PO; +Metoprolol Tar100 MG PO; +NIFE60ER PO; +SEVEC800 PO; +TAMS.4ER PO; +VOTRIENT200 MG PO; +Vitamin D2000 UNIT PO
== END | disposition home or self-care (01) ==
LOC: LAB SHORT 08:00 → LAB 08:00
DX: Z03.818 Encounter for observation for suspected exposure to other biological agents ruled out (principal); Z20.822 Contact with and (suspected) exposure to COVID-19
CPT/HCPCS: U0003

== ENCOUNTER → 2021-01-02 | Outpatient (CLI) | payer OTHER ==
[2021-01-04 16:32] LABS: CORONAVIRUS (COVID19) CSH-NRL Negative (Negative)
== END | disposition home or self-care (01) ==
LOC: LAB SHORT 08:00
PROVIDERS: Family Medicine
DX: I69.351 Hemiplegia and hemiparesis following cerebral infarction affecting right dominant side (principal); J96.90 Respiratory failure, unspecified, unspecified whether with hypoxia or hypercapnia; F19.10 Other psychoactive substance abuse, uncomplicated; N17.9 Acute kidney failure, unspecified; R33.9 Retention of urine, unspecified; C64.9 Malignant neoplasm of unspecified kidney, except renal pelvis; C78.00 Secondary malignant neoplasm of unspecified lung; N28.89 Other specified disorders of kidney and ureter; L03.115 Cellulitis of right lower limb; I10 Essential (primary) hypertension; F32.9 Major depressive disorder, single episode, unspecified; R31.9 Hematuria, unspecified; Z87.81 Personal history of (healed) traumatic fracture; Z98.890 Other specified postprocedural states
CPT/HCPCS: U0003

== ENCOUNTER → 2021-01-05 | Outpatient (CLI) | payer OTHER | END | disposition home or self-care (01) | LOC: LAB 14:33 → LAB SHORT 14:33 | DX: Z20.822 Contact with and (suspected) exposure to COVID-19 (principal) | CPT/HCPCS: U0003 ==

== ENCOUNTER 2021-06-24 06:26 | Emergency (ER) | payer OTHER ==
[~2021-06-24] VITALS: Ht 172.7 cm; Wt 82.1 kg
[2021-06-24 07:31] LABS: Source, Urine Foley catheter
[2021-06-24 07:35] LABS: Appearance, Urine Cloudy (Clear); Bilirubin, Urine Neg (Neg); Blood, Urine 5+ (Neg); Color, Urine Red (P-Yellow); Glucose Qualitative, Urine Neg (Neg); Ketones, Urine Neg (Neg); Leukocyte Esterase, Urine 3+ (Neg); Nitrite, Urine Neg (Neg); Protein, Urine 3+ (Neg); Urobilinogen, Urine NORM (Normal); pH, Urine 6.5 (5.0-8.0)
[2021-06-24 07:44] LABS: Red Blood Cells, Urine TNTC /hpf (0-2); White Blood Cells, Urine TNTC /hpf (0-5)
[2021-06-24 07:45] LABS: Bacteria Many /hpf; Squamous Epithelial Cells Not Seen /hpf (Few)
[2021-06-24 07:48] LABS: BASOPHILS ABSOLUTE AUTO 0.06 K/mm3 (0.00-0.23); BASOPHILS PERCENT AUTO 1 % (0-2); EOSINOPHILS ABSOLUTE AUTO 0.17 K/mm3 (0.00-0.68); EOSINOPHILS PERCENT AUTO 2 % (0-6); Hematocrit 23.9 % (37.0-53.0); Hemoglobin 7.1 g/dL (13.5-17.5); IMMATURE GRAN ABSOLUTE AUTO 0.06 K/mm3 (0.00-0.10); IMMATURE GRAN PERCENT AUTO 1 % (0-1); LYMPHOCYTES ABSOLUTE AUTO 1.03 K/mm3 (0.84-5.20); LYMPHOCYTES PERCENT AUTO 9 % (21-46); MONOCYTES ABSOLUTE AUTO 0.75 K/mm3 (0.16-1.47); MONOCYTES PERCENT AUTO 7 % (4-13); Mean Corpuscular HGB 24.8 pg (26.0-34.0); Mean Corpuscular HGB Conc 29.7 g/dL (31.5-36.5); Mean Platelet Volume 10.3 fL (9.1-12.4); NEUTROPHILS ABSOLUTE AUTO 9.08 K/mm3 (1.96-9.15); NEUTROPHILS PERCENT AUTO 82 % (41-73); Platelet Count 403 K/mm3 (150-400); RDW Coefficient Variation 18.6 % (11.7-14.2); RDW Standard Deviation 57.1 fL (35.1-46.3); Red Blood Cell Count 2.86 M/mm3 (4.30-5.90); White Blood Cell Count 11.15 K/mm3 (4.00-11.30)
[2021-06-24 07:59] LABS: Mean Corpuscular Volume 84 fL (80-100)
[2021-06-24 08:07] LABS: Albumin, Blood 1.9 g/dL (3.4-5.0); Albumin/Globulin Ratio 0.3 (0.8-1.8); Bilirubin, Total 0.4 mg/dL (0.1-1.0); Bun/Creatinine Ratio 16.6 (12.0-20.0); Calcium, Blood 8.6 mg/dL (8.5-10.1); Creatinine, Blood 2.29 mg/dL (0.60-1.20); Globulin, Blood 5.6 g/dL (2.2-4.0); Potassium, Blood 3.9 mmol/L (3.5-5.5); Total Protein, Blood 7.5 g/dL (6.4-8.2)
[2021-06-24] MEDS ORDERED: Percocet 5-3251 EACH PO (09:48)
[2021-06-24] MEDS ORDERED: Cefpodoxime Pr100 MG PO (09:48)
== END 2021-06-24 11:06 | disposition home or self-care (01) ==
LOC: ER 06:26
PROVIDERS: Emergency Medicine
DX: N30.01 Acute cystitis with hematuria (principal); I12.9 Hypertensive chronic kidney disease with stage 1 through stage 4 chronic kidney disease, or unspecified chronic kidney disease; N18.9 Chronic kidney disease, unspecified; D63.1 Anemia in chronic kidney disease; R07.89 Other chest pain; R91.8 Other nonspecific abnormal finding of lung field; E78.5 Hyperlipidemia, unspecified; Z85.528 Personal history of other malignant neoplasm of kidney; Z86.73 Personal history of transient ischemic attack (TIA), and cerebral infarction without residual deficits; Z79.82 Long term (current) use of aspirin; Z79.899 Other long term (current) drug therapy
CPT/HCPCS: 36415; 71045; 80053; 81001; 85025; 87077; 87086; 87147; 87186; 99284-25; A9270

== ENCOUNTER 2021-06-29 12:17 | Emergency (ER) | payer OTHER ==
[~2021-06-29] VITALS: Ht 172.7 cm; Wt 81.7 kg
[~2021-06-29 12:17] MED LIST changes: +Cefpodoxime Pr100 MG PO
[2021-06-29] MEDS ORDERED: CABOMETYX40 MG PO (13:03)
[2021-06-29] MEDS ORDERED: CATAPRES0.1 MG PO (13:04)
[2021-06-29 13:58] LABS: BASOPHILS ABSOLUTE AUTO 0.06 K/mm3 (0.00-0.23); BASOPHILS PERCENT AUTO 1 % (0-2); EOSINOPHILS ABSOLUTE AUTO 0.37 K/mm3 (0.00-0.68); EOSINOPHILS PERCENT AUTO 3 % (0-6); Hemoglobin 6.8 g/dL (13.5-17.5); IMMATURE GRAN ABSOLUTE AUTO 0.15 K/mm3 (0.00-0.10); IMMATURE GRAN PERCENT AUTO 1 % (0-1); LYMPHOCYTES PERCENT AUTO 12 % (21-46); MONOCYTES PERCENT AUTO 7 % (4-13); Mean Corpuscular HGB 24.7 pg (26.0-34.0); Mean Corpuscular HGB Conc 29.6 g/dL (31.5-36.5); Mean Corpuscular Volume 84 fL (80-100); Mean Platelet Volume 10.3 fL (9.1-12.4); NEUTROPHILS ABSOLUTE AUTO 8.27 K/mm3 (1.96-9.15); NEUTROPHILS PERCENT AUTO 76 % (41-73); Platelet Count 454 K/mm3 (150-400); RDW Coefficient Variation 19.4 % (11.7-14.2); RDW Standard Deviation 58.6 fL (35.1-46.3); Red Blood Cell Count 2.75 M/mm3 (4.30-5.90); White Blood Cell Count 10.95 K/mm3 (4.00-11.30)
[2021-06-29 14:14] LABS: Source, Urine Foley catheter
[2021-06-29 14:16] LABS: Bilirubin, Urine Neg (Neg); Blood, Urine 5+ (Neg); Glucose Qualitative, Urine Neg (Neg); Ketones, Urine 1+ (Neg); Leukocyte Esterase, Urine 3+ (Neg); Nitrite, Urine Pos (Neg); Protein, Urine 4+ (Neg); Specific Gravity, Urine 1.015 (1.003-1.022); Urobilinogen, Urine NORM (Normal)
[2021-06-29 14:25] LABS: Appearance, Urine Hazy (Clear); Color, Urine Pale Yellow (P-Yellow)
[2021-06-29 14:26] LABS: Bacteria Mod /hpf; Mucus Light (0-Heavy); Red Blood Cells, Urine 50-100 /hpf (0-2); Squamous Epithelial Cells Rare /hpf (Few)
[2021-06-29 14:34] LABS: Albumin, Blood 1.9 g/dL (3.4-5.0); Albumin/Globulin Ratio 0.4 (0.8-1.8); Bilirubin, Total 0.3 mg/dL (0.1-1.0); Bun/Creatinine Ratio 14.9 (12.0-20.0); Calcium, Blood 8.8 mg/dL (8.5-10.1); Creatinine, Blood 2.82 mg/dL (0.60-1.20); Globulin, Blood 5.4 g/dL (2.2-4.0); Potassium, Blood 4.6 mmol/L (3.5-5.5); Total Protein, Blood 7.3 g/dL (6.4-8.2)
[2021-06-29] MEDS ORDERED: Percocet 5-3251 EACH PO (15:15)
== END 2021-06-29 21:58 | disposition home or self-care (01) ==
LOC: ER 12:17
PROVIDERS: Student in an Organized Health Care Education/Training Program
DX: C64.2 Malignant neoplasm of left kidney, except renal pelvis (principal); R31.9 Hematuria, unspecified; I10 Essential (primary) hypertension; E78.5 Hyperlipidemia, unspecified; Z87.891 Personal history of nicotine dependence; Z79.899 Other long term (current) drug therapy
CPT/HCPCS: 36415; 51700; 51702; 74176; 80053; 81001; 85025; 87077; 87086; 87186; 96374; 99284-25; A9270; J0696

== ENCOUNTER 2021-07-01 09:53 | Emergency (ER) | payer OTHER ==
[~2021-07-01] VITALS: Ht 175.3 cm; Wt 81.7 kg
[~2021-07-01 09:53] MED LIST changes: +CABOMETYX40 MG PO; +CATAPRES0.1 MG PO
[2021-07-01 10:18] LABS: Source, Urine Foley catheter
[2021-07-01 10:29] LABS: Bilirubin, Urine Neg (Neg); Blood, Urine 5+ (Neg); Glucose Qualitative, Urine Neg (Neg); Ketones, Urine Neg (Neg); Leukocyte Esterase, Urine Neg (Neg); Nitrite, Urine Neg (Neg); Protein, Urine 4+ (Neg); Urobilinogen, Urine NORM (Normal); pH, Urine 6.5 (5.0-8.0)
[2021-07-01 10:30] LABS: Color, Urine Red (P-Yellow)
[2021-07-01 10:31] LABS: Appearance, Urine Bloody (Clear)
[2021-07-01 10:32] LABS: Bacteria Few /hpf; Red Blood Cells, Urine TNTC /hpf (0-2); Squamous Epithelial Cells Rare /hpf (Few); White Blood Cells, Urine 25-50 /hpf (0-5)
[2021-07-01 10:35] LABS: BASOPHILS ABSOLUTE AUTO 0.07 K/mm3 (0.00-0.23); BASOPHILS PERCENT AUTO 1 % (0-2); EOSINOPHILS ABSOLUTE AUTO 0.34 K/mm3 (0.00-0.68); EOSINOPHILS PERCENT AUTO 3 % (0-6); Hematocrit 23.3 % (37.0-53.0); Hemoglobin 6.8 g/dL (13.5-17.5); Mean Corpuscular HGB 24.6 pg (26.0-34.0); Mean Corpuscular HGB Conc 29.2 g/dL (31.5-36.5); Mean Corpuscular Volume 84 fL (80-100); Mean Platelet Volume 9.7 fL (9.1-12.4); Platelet Count 426 K/mm3 (150-400); RDW Coefficient Variation 19.3 % (11.7-14.2); RDW Standard Deviation 59.2 fL (35.1-46.3); Red Blood Cell Count 2.76 M/mm3 (4.30-5.90); White Blood Cell Count 10.35 K/mm3 (4.00-11.30)
[2021-07-01 10:49] LABS: Albumin, Blood 1.9 g/dL (3.4-5.0); Albumin/Globulin Ratio 0.3 (0.8-1.8); Bilirubin, Total 0.2 mg/dL (0.1-1.0); Bun/Creatinine Ratio 17.3 (12.0-20.0); Calcium, Blood 9.6 mg/dL (8.5-10.1); Creatinine, Blood 2.43 mg/dL (0.60-1.20); Globulin, Blood 5.6 g/dL (2.2-4.0); Potassium, Blood 4.5 mmol/L (3.5-5.5); Total Protein, Blood 7.5 g/dL (6.4-8.2)
[2021-07-01 10:59] LABS: IMMATURE GRAN ABSOLUTE AUTO 0.14 K/mm3 (0.00-0.10); IMMATURE GRAN PERCENT AUTO 1 % (0-1); LYMPHOCYTES ABSOLUTE AUTO 1.38 K/mm3 (0.84-5.20); LYMPHOCYTES PERCENT AUTO 13 % (21-46); MONOCYTES ABSOLUTE AUTO 0.71 K/mm3 (0.16-1.47); MONOCYTES PERCENT AUTO 7 % (4-13); NEUTROPHILS ABSOLUTE AUTO 7.71 K/mm3 (1.96-9.15); NEUTROPHILS PERCENT AUTO 74 % (41-73)
[2021-07-01] MEDS ORDERED: Norco 5-325 Ta1 EACH PO (11:52)
--- NOTE | 2021-07-01 12:30 | NUR ---
Called to ER for a palliative care consult for Perico. He is in ER room 3 with his Aunt Aggie at the bedside. Perico has a history of CKD secondary to metastatic renal cancer, CVA with right sided deficits, HTN, HLD and history of meth use. He currently lives at [facility] and has an indwelling villanueva catheter. He has been having blood clots in his villanueva and at times has pain when the villanueva catheter becomes plugged. This is his third trip to the ER in the past week for pain, blood clots in his villanueva catheter. He also has questions about the status of his cancer and a plan going forward. He is followed by Dr. Palma for his cancer and Dr. Fernandez is his PCP. Dr. Simental spoke with pt and his Aunt, Aggie, prior to this policy writer sales's arrival. Pt and his aunt state that Dr. Simental explained that his cancer has spread and chemo has been discontinued. Dr. Simental discussed hospice as an option for him to consider as well as code status. Met with Perico and Aggie. They both state that they understand that his cancer continues to grow and is incurable at this time. Discussed option of hospice and answered their questions. Perico states that he is ready to pursue hospice care. Aggie is supportive of his decision. Discussed hospice philosophy, staff and medications and equipment. They have no preference for a hospice agency at this time. Brochures for both [facility] and [facility] given to pt's Aunt. She states that she will contact Dr. Coombs's office on Friday morning (tomorrow) to get the process started to have hospice services. Perico's biggest concern is that staff at [facility] have not been able to manage the blood clots in his catheter. If [facility] staff are open to having training from hospice nurses for villanueva catheter flushes this may help allivate some of his discomfort. Perico is unable to flush the catheter himself due to the residual effects of his CVA to his right sided. Contiuous bladder irrigation or possibly a larger size catheter may need to be considered as well. Perico's other concern is that he is having more and more difficulty getting up and into his wheelchair. He currently has a transfer pole that he uses with his left arm, however this is becoming more difficult and he is having increased pain in his back when attempting transfers. He is very interested in having a hospital bed and bedside table to help with his comfort. Will fax Dr. Simental's ER notes and PC notes to Dr. Coombs's and Dr. Fernandez's offices. PC to make a follow up call to Dr. Coombs's office in the morning as Aggie states that is the physician she will be calling to get hospice services started. Nursing updated and will update Dr. Simental on Perico's decision to pursue hospice.
== END 2021-07-01 13:59 | disposition home or self-care (01) ==
LOC: ER 09:53
PROVIDERS: Emergency Medicine
DX: C64.2 Malignant neoplasm of left kidney, except renal pelvis (principal); C78.00 Secondary malignant neoplasm of unspecified lung; R31.9 Hematuria, unspecified; Z51.5 Encounter for palliative care; I12.9 Hypertensive chronic kidney disease with stage 1 through stage 4 chronic kidney disease, or unspecified chronic kidney disease; N18.30 Chronic kidney disease, stage 3 unspecified; D63.1 Anemia in chronic kidney disease; E78.5 Hyperlipidemia, unspecified; Z86.73 Personal history of transient ischemic attack (TIA), and cerebral infarction without residual deficits; Z87.891 Personal history of nicotine dependence; Z79.82 Long term (current) use of aspirin; Z79.899 Other long term (current) drug therapy
CPT/HCPCS: 36415; 51798; 80053; 81001; 85025; 87086; J1170; J7030